=== PATIENT | male | born 1935 | race Caucasian/White ===

== ENCOUNTER 2016-12-22 07:29 | Outpatient (CLI) | payer MEDICARE | END 2016-12-22 07:30 | disposition home or self-care (01) | DX: I10 Essential (primary) hypertension (principal); E78.5 Hyperlipidemia, unspecified ==

== ENCOUNTER 2017-02-23 13:15 | Outpatient (CLI) | payer MEDICARE | END 2017-02-23 13:16 | disposition short-term general hospital (02) | LOC: EMS 13:15 | PROVIDERS: ATTEND Surgery | DX: R55 Syncope and collapse (principal); R00.1 Bradycardia, unspecified | CPT/HCPCS: A0425; A0429 ==

== ENCOUNTER 2017-03-26 14:16 | Outpatient (CLI) | payer MEDICARE ==
[2017-03-26 18:17] LABS: CALCIUM 9.6 mg/dL (8.5-10.3); CREATININE 1.3 mg/dL (0.6-1.2); POTASSIUM 3.8 mmol/L (3.5-5.0)
== END 2017-03-26 14:17 | disposition home or self-care (01) ==
LOC: LAB.F 14:16
PROVIDERS: ATTEND Physician Assistant
DX: I10 Essential (primary) hypertension (principal)
CPT/HCPCS: 36415; 80048

== ENCOUNTER 2017-12-14 09:17 | Outpatient (CLI) | payer MEDICARE ==
[2017-12-14 18:11] LABS: ALBUMIN 4.3 g/dL (3.2-5.5); ALBUMIN/GLOBULIN RATIO 1.3 (1.0-2.2); ALKALINE PHOSPHATASE 103 IU/L (42-121); ALT ALANINE AMINOTRANSFERASE 15 IU/L (10-60); AST ASPARTATE AMINOTRANSFERASE 19 IU/L (10-42); BILIRUBIN,TOTAL 0.9 mg/dL (0.2-1.0); BUN - BLOOD UREA NITROGEN 17 mg/dL (6-20); CALCIUM 9.9 mg/dL (8.5-10.3); CARBON DIOXIDE - CO2 28 mmol/L (21-32); CHLORIDE 102 mmol/L (101-111); CHOL/HDL RATIO 2.8 (<5.0); CHOLESTEROL 176 mg/dL; CREATININE 1.2 mg/dL (0.6-1.2); GFR - MDRD 58 (>89); GLUCOSE 104 mg/dL (70-100); HDL CHOLESTEROL 64 mg/dL; LDL CHOLESTEROL,CALCULATED 97 mg/dL; LDL/HDL RATIO 1.5 (<3.6); SODIUM 140 mmol/L (135-145); TOTAL PROTEIN 7.5 g/dL (6.7-8.2); VLDL CHOLESTEROL 15 mg/dL
== END 2017-12-14 09:18 | disposition home or self-care (01) ==
LOC: LAB.F 09:17
PROVIDERS: ATTEND Physician Assistant
DX: E78.5 Hyperlipidemia, unspecified (principal); I10 Essential (primary) hypertension
CPT/HCPCS: 36415; 80053; 80061; 83721

== ENCOUNTER 2018-01-15 08:11 | Outpatient (CLI) | payer MEDICARE ==
[2018-01-15 11:01] LABS: CALCIUM 9.2 mg/dL (8.5-10.3); CREATININE 1.1 mg/dL (0.6-1.2)
== END 2018-01-15 08:12 | disposition home or self-care (01) ==
LOC: LAB.F 08:11
PROVIDERS: ATTEND Physician Assistant
DX: I10 Essential (primary) hypertension (principal); R73.01 Impaired fasting glucose
CPT/HCPCS: 36415; 80048

== ENCOUNTER 2018-04-09 14:21 | Outpatient (CLI) | payer MEDICARE ==
[2018-04-09 17:41] LABS: ALBUMIN 3.5 g/dL (3.2-5.5); ALBUMIN/GLOBULIN RATIO 1.2 (1.0-2.2); BILIRUBIN,TOTAL 0.7 mg/dL (0.2-1.0); CALCIUM 9.1 mg/dL (8.5-10.3); CREATININE 1.1 mg/dL (0.6-1.2); TOTAL PROTEIN 6.4 g/dL (6.7-8.2)
== END 2018-04-09 14:22 | disposition home or self-care (01) ==
LOC: LAB.F 14:21
PROVIDERS: ATTEND Physician Assistant
DX: I10 Essential (primary) hypertension (principal)
CPT/HCPCS: 36415; 80053

== ENCOUNTER 2018-09-01 07:38 | Outpatient (CLI) | payer MEDICARE ==
[2018-09-01 10:52] LABS: ALBUMIN 3.7 g/dL (3.2-5.5); ALBUMIN/GLOBULIN RATIO 1.2 (1.0-2.2); ALKALINE PHOSPHATASE 106 IU/L (42-121); ALT ALANINE AMINOTRANSFERASE 13 IU/L (10-60); AST ASPARTATE AMINOTRANSFERASE 17 IU/L (10-42); BILIRUBIN,TOTAL 0.8 mg/dL (0.2-1.0); BUN - BLOOD UREA NITROGEN 25 mg/dL (6-20); CALCIUM 9.4 mg/dL (8.5-10.3); CARBON DIOXIDE - CO2 28 mmol/L (21-32); CHLORIDE 106 mmol/L (101-111); CHOL/HDL RATIO 3.4 (<5.0); CHOLESTEROL 171 mg/dL; CREATININE 1.2 mg/dL (0.6-1.2); GFR - MDRD 58 (>89); GLUCOSE 106 mg/dL (70-100); HDL CHOLESTEROL 50 mg/dL; LDL CHOLESTEROL,CALCULATED 95 mg/dL; LDL/HDL RATIO 1.9 (<3.6); SODIUM 139 mmol/L (135-145); TOTAL PROTEIN 6.7 g/dL (6.7-8.2); VLDL CHOLESTEROL 26 mg/dL
== END 2018-09-01 07:39 | disposition home or self-care (01) ==
LOC: LAB.F 07:38
PROVIDERS: ATTEND Internal Medicine
DX: I10 Essential (primary) hypertension (principal)
CPT/HCPCS: 36415; 80053; 80061; 83721

== ENCOUNTER 2018-10-11 08:54 | Outpatient (CLI) | payer MEDICARE ==
--- NOTE | 2018-10-11 15:52 | CONSULTATION NOTE ---
Referring Provider Consult Date: 10/11/18 Chief Complaint - Chief Complaint Chief Complaint: abdominal pain History of Present Illness - History of Present Illness HPI Comment/Other: 83 yo man presented to the ER with acute RLQ pain that started this morning. It has since resolved. Also had a syncopal episode at home. Denies any other abdominal symptoms or surgery. He did have a stroke in 2009. History - Past Medical History Cardiovascular: reports: Hypertension Neuro: reports: CVA MRSA Hx?: No - Past Surgical History HEENT: reports: Tonsil/Adenoidectomy Derm: reports: Other - POLST Patient has POLST: No Meds/Allgy - Home Medications Home Medications: Ambulatory Orders Medication Instructions Recorded Confirmed Clopidogrel Bisulfate [Clopidogrel] 75 mg PO DAILY 10/11/18 Lisinopril 20 mg PO DAILY 10/11/18 Metoprolol Tartrate 50 mg PO BID 10/11/18 Spironolactone 25 mg PO DAILY 10/11/18 - Allergies Allergies/Adverse Reactions: Allergies Allergy/AdvReac Type Severity Reaction Status Date / Time No Known Drug Allergies Allergy Verified 10/11/18 09:38 Review of Systems - Constitutional Constitutional: reports: Fatigue - Cardiovascular Cariovascular: reports: Syncope - Gastrointestinal Gastrointestinal: reports: Abdominal pain Exam - Vital Signs Reviewed Vital Signs: Yes - Physical Exam General Appearance: positive: No acute distress Eyes Bilateral: positive: Normal inspection ENT: positive: ENT inspection nml Respiratory: positive: Chest non-tender Cardiovascular: positive: Regular rate & rhythm Abdomen: positive: Non-tender Back: positive: Nml inspection Skin: positive: Color nml Extremities: positive: Non-tender Neurologic/Psychiatric: positive: Oriented x3 Conclusion/Plan - Diagnosis Diagnosis: Perforated viscous - Plan Plan: On CT, pt appears to have a fluid collection in the RLQ without air with some adjacent inflammatory changes. His sigmoid colon overlies the cecum in that region and he does have diverticuli, so most likely he has diverticulitis vs appendicitis. However, he currently has no pain or tenderness and no WBC elevation. I think it is reasonable to admit the pt on antibiotics and observe overnight for progression. If his clinical picture deteriorates, we will revisit the possibility of surgery. I discussed this with the pt and he agrees.
== END 2018-10-11 08:55 | disposition critical access hospital (66) ==
LOC: EMS 08:54
PROVIDERS: ATTEND Surgery
DX: R55 Syncope and collapse (principal)
CPT/HCPCS: A0425; A0429

== ENCOUNTER 2018-10-11 09:31 | Inpatient (IN) | payer MEDICARE ==
--- NOTE | 2018-10-11 10:18 | ED Physician Documentation ---
History of Present Illness - Stated complaint Stated Complaint: SYNCOPE - Chief complaint Chief Complaint: Abd Pain - Additonal information Additional information: hx from pt 83 male soa and cough for a few days was going to see PMD about that no fever this AM had lower abd pains and felt weak and sweaty then had a syncopal episode no fall or injury - was seated no CP or palp had blood in BM a month ago not recently dark urine no NVD no bad food no travel Review of Systems Constitutional: reports: Sweats Throat: denies: Sore throat Cardiac: denies: Chest pain / pressure, Palpitations Respiratory: reports: Dyspnea, Cough GI: reports: Abdominal Pain. denies: Nausea, Vomiting, Diarrhea, Bloody / black stool (not for a month) : reports: Other (dark color) Neurologic: reports: Syncope. denies: Headache, Head injury Endocrine: denies: Easy bruising / bleeding Immunocompromised: denies: Immunocompromised PD PAST MEDICAL HISTORY - Past Medical History Past Medical History: Yes Cardiovascular: Hypertension Neuro: CVA - Past Surgical History Past Surgical History: Yes HEENT: Tonsil/Adenoidectomy Derm: Other - Present Medications Home Medications: Ambulatory Orders Medication Instructions Recorded Confirmed Clopidogrel Bisulfate [Clopidogrel] 75 mg PO DAILY 10/11/18 Lisinopril 20 mg PO DAILY 10/11/18 Metoprolol Tartrate 50 mg PO BID 10/11/18 Spironolactone 25 mg PO DAILY 10/11/18 - Allergies Allergies/Adverse Reactions: Allergies Allergy/AdvReac Type Severity Reaction Status Date / Time No Known Drug Allergies Allergy Verified 10/11/18 09:38 - Social History Does the pt smoke?: No Smoking Status: Never smoker Does the pt drink ETOH?: Yes ETOH Use: Wine Does the pt have substance abuse?: No - Immunizations Immunizations are current?: Yes - POLST Patient has POLST: No PD ED PE NORMAL - Vitals Vital signs reviewed: Yes - General General: Alert and oriented X 3 - HEENT HEENT: PERRL - Neck Neck: Supple, no meningeal sign - Cardiac Cardiac: RRR - Respiratory Respiratory: No respiratory distress, Clear bilaterally - Abdomen Abdomen: Soft, Other (mild to mod TTP lower abd wirh deep palp but not peritoneal) - Derm Derm: Normal color - Neuro Neuro: Alert and oriented X 3, No motor deficit, Normal speech Eye Opening: Spontaneous Motor: Obeys Commands Verbal: Oriented GCS Score: 15 Results - Vitals Vitals: Vital Signs - 24 hr 10/11/18 10/11/18 09:33 12:09 Temperature 36.3 C L 36.5 C Heart Rate 106 H 91 Respiratory 18 18 Rate Blood Pressure 144/88 H 139/87 H O2 Saturation 95 97 Oxygen O2 Source Room air - EKG (time done) 1032 Rate: Rate (enter#) (93) Rhythm: NSR [place]: Normal Ischemia: Normal ST segments - Labs Labs: Laboratory Tests 10/11/18 10/11/18 10/11/18 10:29 10:29 10:29 WBC 7.4 RBC 4.74 Hgb 14.4 Hct 42.5 MCV 89.6 MCH 30.5 MCHC 34.0 RDW 13.6 Plt Count 147 MPV 8.8 Neut # (Auto) 6.6 Lymph # (Auto) 0.3 L [place] # (Auto) 0.4 Eos # (Auto) 0.0 Baso # (Auto) 0.0 Absolute Nucleated RBC 0.01 Nucleated RBC % 0.1 Sodium 137 Potassium 4.4 Chloride 104 Carbon Dioxide 25 Anion Gap 8.0 BUN 24 H Creatinine 1.4 H Estimated GFR (MDRD) 49 L Glucose 144 H Lactic Acid Calcium 8.8 Total Bilirubin 0.7 AST 14 ALT 12 Alkaline Phosphatase 95 Troponin I < 0.04 Total Protein 6.6 L Albumin 3.5 Globulin 3.1 Albumin/Globulin Ratio 1.1 Lipase 38 Urine Color Urine Clarity Urine pH Ur Specific [place] Urine Protein Urine Glucose (UA) Urine Ketones Urine Occult Blood Urine Nitrite Urine Bilirubin Urine Urobilinogen Ur Leukocyte Esterase Urine RBC Urine WBC Ur Squamous Epith Cells Urine Bacteria Ur Microscopic Review Urine Culture Comments 10/11/18 10/11/18 10:29 11:30 WBC RBC Hgb Hct MCV MCH MCHC RDW Plt Count MPV Neut # (Auto) Lymph # (Auto) [place] # (Auto) Eos # (Auto) Baso # (Auto) Absolute Nucleated RBC Nucleated RBC % Sodium Potassium Chloride Carbon Dioxide Anion Gap BUN Creatinine Estimated GFR (MDRD) Glucose Lactic Acid 1.3 Calcium Total Bilirubin AST ALT Alkaline Phosphatase Troponin I Total Protein Albumin Globulin Albumin/Globulin Ratio Lipase Urine Color DARK YELLOW Urine Clarity CLOUDY Urine pH 5.5 Ur Specific [place] >=1.030 H Urine Protein 30 H Urine Glucose (UA) NEGATIVE Urine Ketones TRACE Urine Occult Blood LARGE H Urine Nitrite NEGATIVE Urine Bilirubin NEGATIVE Urine Urobilinogen 0.2 (NORMAL) Ur Leukocyte Esterase TRACE H Urine RBC TNTC H Urine WBC 6-10 H Ur Squamous Epith Cells FEW Squamous Urine Bacteria Few Ur Microscopic Review INDICATED Urine Culture Comments INDICATED - Rads (name of study) CTAP Radiology: See rad report (diverticulosis, rednundant sigmoid, fat stranding and inflammation RLQ could be perf divertic or appy with possible abscess no free air) CXR Radiology: See rad report (L base atelectasis) PD MEDICAL DECISION MAKING - ED course ED course: SOA abd pain and syncope EKG and trop fine labs notable for new renal insuff and UTI CXR = probably atelectasis CTAP shows RLQ inflammatory changes 2.2 X 3.5 cm per radia c/w contained perf of appendix or diverticultis, also L renal mass vs cyst radia rec sono (pt advised) gave zosyn req [employer] call surgeon for consult and hospitalist for admit approx 130 PM due to busy ER with many transfers to be arranged, consultants not paged until a bit later spoke to surgery Dr Robles at 1520 and he will come see pt spoke to hospitalist Dr Delgadillo at 1540 and she will admit to inpt Departure - Departure Disposition: 66 [facility] DC/Xfer Clinical Impression: Abdominal infection Syncope Qualifiers: Syncope type: unspecified Qualified Code(s): R55 - Syncope and collapse Dyspnea Qualifiers: Dyspnea type: unspecified Qualified Code(s): R06.00 - Dyspnea, unspecified UTI (urinary tract infection) Qualifiers: Urinary tract infection type: site unspecified Hematuria presence: with hematuria Qualified Code(s): N39.0 - Urinary tract infection, site not specified Condition: Fair
[2018-10-11 10:38] LABS: BASOPHILS % (AUTO) 0.3 %; EOSINOPHILS % (AUTO) 0.5 %; HGB - HEMOGLOBIN 14.4 g/dL (14.0-18.0); LYMPHOCYTES # (AUTO) 0.3 10^3/uL (1.5-3.5); LYMPHOCYTES % (AUTO) 3.7 %; MEAN CORPUSCULAR HEMOGLOBIN 30.5 pg (27.0-31.0); MEAN CORPUSCULAR VOLUME 89.6 fL (80.0-94.0); MEAN PLATELET VOLUME 8.8 fL (7.4-11.4); MONOCYTES # (AUTO) 0.4 10^3/uL (0.0-1.0); MONOCYTES % (AUTO) 5.9 %; NEUTROPHILS # (AUTO) 6.6 10^3/uL (1.5-6.6); NEUTROPHILS % (AUTO) 89.6 %; PLT - PLATELET COUNT 147 10^3/uL (130-450); RED BLOOD COUNT 4.74 10^6/uL (4.70-6.10); RED CELL DISTRIBUTION WIDTH 13.6 % (12.0-15.0); WHITE BLOOD COUNT 7.4 x10^3/uL (4.8-10.8)
[2018-10-11 10:51] LABS: ALBUMIN 3.5 g/dL (3.2-5.5); ALBUMIN/GLOBULIN RATIO 1.1 (1.0-2.2); BILIRUBIN,TOTAL 0.7 mg/dL (0.2-1.0); CALCIUM 8.8 mg/dL (8.5-10.3); CREATININE 1.4 mg/dL (0.6-1.2); TOTAL PROTEIN 6.6 g/dL (6.7-8.2)
--- NOTE | 2018-10-11 11:38 | XRAY Report ---
Reason: syncope cough soa Procedure Date: 10/11/2018 Accession Number: [id number] / [id number] Procedure: XR - Chest 2 View X-Ray CPT Code: 16925 FULL RESULT: EXAM: CHEST RADIOGRAPHY EXAM DATE: 10/11/2018 11:03 AM. CLINICAL HISTORY: Syncope, cough, shortness of air. COMPARISON: None. TECHNIQUE: 2 views. FINDINGS: Lungs/Pleura: There are opacities at the left lung base, appearance favors subsegmental atelectasis, airspace disease not excluded. No pleural effusion or pneumothorax. Mediastinum: Heart and mediastinal contours are unremarkable. Other: None. IMPRESSION: There are linear opacities at left lung base. RADIA
--- NOTE | 2018-10-11 11:42 | CT Report ---
Reason: abd pain syncope Procedure Date: 10/11/2018 Accession Number: [id number] / [id number] Procedure: CT - Abdomen/Pelvis W/O CPT Code: FULL RESULT: EXAM: CT ABDOMEN AND PELVIS (CT KUB) EXAM DATE: 10/11/2018 10:46 AM. CLINICAL HISTORY: Abdominal pain, syncope. COMPARISONS: None. TECHNIQUE: Routine axial helical CT imaging was performed through the abdomen and pelvis without IV contrast. Reconstructions: Coronal and sagittal. In accordance with CT protocol optimization, one or more of the following dose reduction techniques were utilized for this exam: automated exposure control, adjustment of mA and/or KV based on patient size, or use of iterative reconstructive technique. FINDINGS: Lung Bases: Bilateral dependent changes. Right Kidney/Ureter: Simple cysts and hypodensities which are too small to characterize. No stones, hydronephrosis, or hydroureter. No perinephric fat stranding. Left Kidney/Ureter: There is the suggestion of a solid 3.1 x 2.2 x 2.7 cm upper pole left renal mass, not characterized on noncontrast exam. There are also simple renal cysts. No obstruction or calculi. Other Solid Organs: Liver contains subcentimeter hypodensities which are not characterized as they are too small to be evaluated for cyst on noncontrast examination. Gallbladder/Bile Ducts: Unremarkable. Peritoneal Cavity: There is a 2.2 x 3.5 cm low-density fluid collection, greater than simple fluid at 17 HU in the right lower quadrant near the inguinal canal that is intimately associated with the sigmoid colon and the presumed appendix which is not separately visualized. There is subtle fat stranding in the surrounding area. There is diverticulosis of the sigmoid colon. No bowel obstruction. No definite free intraperitoneal gas. No significant free fluid. Pelvic Organs: Prostatic hypertrophy with calcifications. Vasculature: Unremarkable. Other: None. IMPRESSION: Limited characterization of right lower quadrant inflammatory changes given absence of contrast. In the setting of nearby diverticulosis and nonvisualization of the appendix contained perforation of diverticulitis versus appendicitis likely with contained perforation is difficult to differentiate. Suspect left renal mass, recommend ultrasound on routine outpatient basis to determine whether this could represent a hyperdense cyst. RADIA The above findings of suspected diverticulitis versus appendicitis were discussed with Renee Licona by Dr. Tk Saravia at 11:40 hrs on 10/11/18.
[2018-10-11 11:47] LABS: GLUCOSE, URINE (UA) NEGATIVE (NEGATIVE); KETONES,URINE (UA) TRACE mg/dL (NEGATIVE); LEUKOCYTE ESTERASE, URINE TRACE (NEGATIVE); NITRITE,URINE NEGATIVE (NEGATIVE); OCCULT BLOOD,URINE LARGE (NEGATIVE); PH,URINE 5.5 PH (5.0-7.5); PROTEIN,URINE 30 mg/dL (NEGATIVE); UROBILINOGEN,URINE 0.2 (NORMAL) E.U./dL (NORMAL)
[2018-10-11 11:54] LABS: BILIRUBIN,URINE NEGATIVE (NEGATIVE); CLARITY,URINE CLOUDY (CLEAR); ICTOTEST,URINE NEGATIVE
[2018-10-11 12:10] LABS: BACTERIA,URINE Few /HPF (None Seen); RBC,URINE TNTC /HPF (0-5); SQUAMOUS EPITHELIAL CELL,UR FEW Squamous (<= Few)
[2018-10-11] MEDS ORDERED: PIPERACILLIN/TAZOBACTAM 3.375 GM in SODIUM CHLORIDE 0.9% MINIBAG 100 ML IV STA (13:29)
[2018-10-11] MEDS ORDERED: ACETAMINOPHEN 1,000 MG/100 ML 100 ML IV STA (15:28)
[2018-10-11] MEDS ORDERED: ONDANSETRON 4 MG/2 ML VIAL IVP PRN (15:57)
[2018-10-11] MEDS ORDERED: MORPHINE 2 MG/ML CARPUJECT IVP PRN (15:57)
[2018-10-11] MEDS ORDERED: ONDANSETRON ODT 4 MG TABLET TL PRN (15:57)
[2018-10-11] MEDS ORDERED: SODIUM CHLORIDE FLUSH 0.9% 10 ML SYRINGE IVP PRN (15:57)
--- NOTE | 2018-10-11 16:21 | HISTORY & PHYSICAL EXAMINATION ---
Chief Complaint - Chief Complaint Chief Complaint: RLQ abd pain, sudden, w syncop History of Present Illness - Admitted From Admitted From:: Home/ER - History Obtained From Records Reviewed: [facility] and [facility] History obtained from: Dr. Ackerman and patient Exam Limitations: None - History of Present Illness HPI Comment/Other: He has been having coughing, chest congestion and sinus congestion for the last week. Was due to see his primary care provider tomorrow. This morning, was sitting on the toilet, he had an sudden onset of right lower quadrant pain. Had syncope. He gives a history of having some bloody stool a month ago. But no intervening history of abdominal pain, fevers, chills, sweats, or change in [place] wel habits. In the emergency room he was evaluated by Dr. Ackerman. He was afebrile, mildly tachycardic at 106, blood pressure 144/88 respirations 18. He had a soft abdominal exam, with mild to moderate tenderness of the lower abdomen with deep palpation but no peritoneal findings. A white cell count was normal. Electrolytes were normal. He does have a mild elevation of BUN and creatinine of 24 1.4 where his baseline is 25 and 1.1. Lactic acid was 1.3 because of the tachycardia and a troponin was negative at 0.04. CT of the abdomen shows a collection of fluid in the right lower quadrant. He has already been seen by general surgery who feels that it is either appendicitis versus diverticulitis that is walled off. He would like the patient admitted to our service and treated with single agent Zosyn. He will do serial abdominal exams and decide tomorrow if the patient is going to go for surgery or not. At this time the patient does not need to go to surgery. The patient denies chest pain, palpitations. He has a history of a stroke but no history of A. fib, valvular heart disease. He has not had any angina. He does not have any lung disease. History - Past Medical History Cardiovascular: reports: Congestive heart failure (November 2009. Echocardiogram showed an ejection fraction of 40-45%. Septal hypokinesis. Grade 1 diastolic dysfunction. Mild aortic regurgitation, trace tricuspid regurgitation without pulmonary hypertension.), Hypertension Respiratory: reports: None Neuro: reports: CVA (November 14, 2009. Presented as speech difficulty and problems with walking. CT of head was negative. Echocardiogram showed new congestive heart failure. Old lacunar infarcts were noted. Carotid Dopplers without hemodynamically significant carotid artery plaque or stenosis. EKG was sinus tachycardia. Residual speech deficit treated by speech therapy. Started on Plavix and aspirin.), Fainting (Syncope February 2017. Was at the [employer] when he started feeling "warm and lightheaded". Went outside to the garden and the cool air felt great. Sat down on the curb in the garden. Then he woke up lying flat on the ground. Bystanders reported that he fell backward and was unconscious for 45 seconds. EKG with sinus rhythm first-degree AV block. Seen at [facility]. CT of head showed small old right basilar ganglia infarcts and right centrum semi-ovale. [place] to be vasovagal. Since exam negative, labs negative, sent home.), Other (Vertigo and tinnitus starting October 2013. The room will spin around him. Tends to be more when he turns his head to the right than left.) Endocrine/Autoimmune: reports: None GI: reports: Diverticulitis (Currently with a history of diverticulosis in the past.) : reports: Other (Hematuria on urinalysis 2016.Bladder biopsy -2002.) HEENT: reports: Other (Benign left parotid tumor removed in 2003) Psych: reports: None Musculoskeletal: reports: None Derm: reports: None MRSA Hx?: No Other Past Medical History: Mild anemia 2009. 3 sets of Hemoccult cards negative.Ferritin normal at 42.9. - Past Surgical History HEENT: reports: Tonsil/Adenoidectomy, Other (left parotid tumor removal) - Family & Social History Family History Comment/Other: Mother of a stroke. Dad of cancer and also had COPD. Sister of unknown causes. She went to bed one night and never woke up. 1 son is in good health, and lives in [place] but one son has chemical dependency, on methadone and lives in [place]. Living arrangement: At home Living Situation: Alone Social History Notes: He use to live with his in [place]. She has developed progressive dementia and he was her caregiver. She 3 years ago. His younger son used to live with them. He and his significant other helped Mr. Chao take care of his . They cooked, kept the house clean. They lived together for about 5 years. When his , he really wanted his son to leave the house. The son still has problems with substance abuse. So Mr. Chao bought him a small house in [place] and his son lives in [place] with a significant other. He finds it easier to have the distance. His second son lives in [place] with his partner and they adoped 2 kids. He is a non-smoker. He started smoking at the age of 16. Smoked about 1 pack/day and stopped in 1989. He likes 2 glasses of wine anywhere from 3-4 times a week. A Martini is daily. No history of recreational substance abuse. - Substance History Use: Uses substance without health or social issues: Alcohol Abuse: Recurrent use of substance despite neg consequences: NONE Dependence: Experiences withdrawal or developed tolerances: NONE - POLST Patient has POLST: No POLST Status: DNR (He has advanced directive at home.) Meds/Allgy - Home Medications Home Medications: Ambulatory Orders Medication Instructions Recorded Confirmed Clopidogrel Bisulfate [Clopidogrel] 75 mg PO DAILY 10/11/18 10/11/18 Lisinopril 20 mg PO DAILY 10/11/18 10/11/18 Metoprolol Tartrate 50 mg PO BID 10/11/18 10/11/18 Spironolactone 25 mg PO DAILY 10/11/18 10/11/18 - Allergies Allergies/Adverse Reactions: Allergies Allergy/AdvReac Type Severity Reaction Status Date / Time No Known Drug Allergies Allergy Verified 10/11/18 09:38 Review of Systems - Constitutional Constitutional: denies: Fatigue, Fever, Chills, Malaise, Weakness, Poor appetite, Diaphoresis - Eyes Eyes: reports: Irritation, Corrective lenses, Other (He does have cataracts that he is waiting on to get operated on). denies: Pain, Amaurosis, Blurred vision, Field loss - Ears, Nose & Throat Ears, Nose & Throat: reports: Hearing loss, Tinnitus, Vertigo. denies: Ear pain, Hearing aids, Nasal pain, Nasal discharge - Cardiovascular Cariovascular: reports: Exertional dyspnea (He had dyspnea on exertion when he went to go visit his son in September. Noticed it because he would climb a flight of stairs to get upstairs and was noticeably short of breath. Seen by his primary care provider October 01. Current ongoing thought is that he may be bradycardic from his beta-sincere and that was cut to 25 mg a day. He is to be seen in 10 days for follow-up. There is no note in the office chart that that they are aware of the echocardiogram from 2009 showing a reduction in ejection fraction.), Decr. exercise tolerance. denies: Irregular heart rate, Palpitations, Chest pain, Edema - Respiratory Respiratory: denies: Cough, Sputum production, Wheezing, Snoring - Gastrointestinal Gastrointestinal: reports: Abdominal pain (Right lower quadrant this morning only.), Rectal bleeding, Bloody stools, Other (Twice now he has had severe abdominal cramping with an urge to defecate, and he filled the bowl with blood. This is only happened twice. The last time was 2 months ago.). denies: Abdominal distention, Diarrhea, Change in bowel habits, Black stools, Nausea, Vomiting - Genitourinary Genitourinary: reports: Frequency, Urgency, Nocturia. denies: Dysuria, Incontinence, Flank pain - Musculoskeletal Musculoskeletal: reports: Stiffness (Especially in his knees and hips when he gets up in the morning). denies: Muscle pain, Back pain, Muscle aches, Muscle weakness, Gout, Joint pain - Neurological Neurological: reports: Memory problems (Occasionally forgets a word.), Pre- existing deficit, Incoordination (balance off for years now). denies: General weakness, Focal weakness, Headache, Dizziness - Psychiatric Psychiatric: reports: Other (He is getting lonely or lonely or. As he says that he burst into tears.) - Endocrine Endocrine: denies: Polyuria, Polydypsia, Polyphagia - Hematologic/Lymphatic Hematologic/Lymphatic: denies: Anemia, Bruising, Petechiae, Lymphadenopathy, Bleeding tendencies Prior Level of Functionality: He lives in his own apartment. He is a terrible business services sales representative but he still does his own laundry and tries to keep up with the house. He rarely cooks. Likes to go to [employer] in [place] and eats there. Drinks his Martini there to socialize. Still drives a car, pays his own bills. He sold his house a year ago to set aside money for when he needs to have somebody take care of him. Exam - Vital Signs Reviewed Vital Signs: Yes Vital Signs: Vital Signs x48h Temp Pulse Resp BP Pulse Ox 10/11/18 12:09 36.5 C 91 18 139/87 H 97 10/11/18 09:33 36.3 C L 106 H 18 144/88 H 95 - Physical Exam General Appearance: positive: No acute distress, Alert, Other (When we start talking about his lifestyle, and I asked if he is lonely, he spontaneously burst into tears and says that yes, life is a little bit lonely these days. He knows he should go visit his son in [place], but has not made an effort to. And his son is busy with his 2 kids and has not come to the [place] much.) Eyes Bilateral: positive: PERRL, EOMI ENT: positive: Other (The right eye left facial asymmetry because of probable stroke residual. His left eye does not spontaneously close to blink as his right eye does. It seems to be wide open and slightly protuberant. The musculature of his left face is also much more atrophied than his right face. But speech appears normal. Swallowing appears normal.) Neck: negative: No JVD, Stiff neck, Carotid bruit Respiratory: positive: Chest non-tender. negative: Wheezes, Rales, Rhonchi Cardiovascular: positive: Regular rate & rhythm, Systolic murmur. negative: Gallop/S4, Friction rub Peripheral Pulses: positive: 1+ Abdomen: positive: Nml bowel sounds, Tenderness (Mild to palpation. Right lower quadrant.). negative: No organomegaly, No distention, Guarding, Rebound Skin: positive: Warm, Dry Extremities: positive: Full ROM, No pedal edema Neurologic/Psychiatric: positive: Oriented x3, Other (Tearful.). negative: CN's nml (2-12) (Slight left facial droop. Slight tongue deviation. 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 Not associated with fever, white cells, Myalgia, or change in bowel habits. He has a previous history of diverticulosis. Current exam is without peritoneal findings. He has been seen by general surgery. CAT scan shows him to have either diverticulitis or appendicitis. General surgery feels patient can do well with just single agent Zosyn, no surgery at this time Plan: Admit inpatient status per surgery request Continue Zosyn Review blood cultures when they become available Serial abdominal exams Daily CBC (2) Syncope Conclusion/Plan: This is a gentleman who is already had vasovagal syncope in 2017. Seen at [facility]. The syncope is in association with terrible abdominal pain. He has no history of arrhythmias, already has a history of a stroke but this is not a posterior inferior cerebellar event, and I suspect he has had vasovagal syncope again today. He also had his beta-sincere reduced from 50-25 mg twice a day in the last week. Current medication reconciliation is to list him as 50 mg twice daily. Plan: Placed on telemetry for the next 24 hours Get another set of troponins Get current reconciliation to make sure on 25 twice daily Resume metoprolol 25 mg twice daily Qualifiers: Syncope type: vasovagal syncope Qualified Code(s): R55 - Syncope and collapse (3) Abnormal echocardiogram findings without diagnosis Conclusion/Plan: This is found on reviewing his records from his stroke in 2009. But he has no diagnosis of congestive heart failure and his recent dyspnea on exertion is attributed to beta-sincere side effect. Plan: BNP in the morning Repeat echocardiogram (4) Hyperglycemia Conclusion/Plan: No previous history of diabetes. He has had isolated hyperglycemia off and on the past but never severe to be diagnosed. Plan: A1c in the morning (5) Hematuria Conclusion/Plan: Previous bladder biopsy negative. Hematuria noted on ER visit to [facility] in February 2017. Current CT of the abdomen shows a left renal mass. Ultrasound to be done in the outpatient setting. Qualifiers: Hematuria type: unspecified type Qualified Code(s): R31.9 - Hematuria, unspecified (6) CKD (chronic kidney disease) stage 3, GFR 30-59 ml/min Conclusion/Plan: in reviewing his medical records, this is stable. will give IVF since he is NPO. check daily avoid nephrotoxic meds. - Lab Results Lab results reviewed: Yes Fish Bones: 10/11/18 10:29 10/11/18 10:29 - Diagnostic Imaging Results Diagnostic Imaging Results: positive: Final report reviewed Diagnostic Imaging Results Comments: CHEST RADIOGRAPHY EXAM DATE: 10/11/2018 11:03 AM. CLINICAL HISTORY: Syncope, cough, shortness of air. COMPARISON: None. TECHNIQUE: 2 views. FINDINGS: Lungs/Pleura: There are opacities at the left lung base, appearance favors subsegmental atelectasis, airspace disease not excluded. No pleural effusion or pneumothorax. Mediastinum: Heart and mediastinal contours are unremarkable. Other: None. IMPRESSION: There are linear opacities at left lung base. CT ABDOMEN AND PELVIS (CT KUB) EXAM DATE: 10/11/2018 10:46 AM. CLINICAL HISTORY: Abdominal pain, syncope. COMPARISONS: None. TECHNIQUE: Routine axial helical CT imaging was performed through the abdomen and pelvis without IV contrast. Reconstructions: Coronal and sagittal. In accordance with CT protocol optimization, one or more of the following dose reduction techniques were utilized for this exam: automated exposure control, adjustment of mA and/or KV based on patient size, or use of iterative reconstructive technique. FINDINGS: Lung Bases: Bilateral dependent changes. Right Kidney/Ureter: Simple cysts and hypodensities which are too small to characterize. No stones, hydronephrosis, or hydroureter. No perinephric fat stranding. Left Kidney/Ureter: There is the suggestion of a solid 3.1 x 2.2 x 2.7 cm upper pole left renal mass, not characterized on noncontrast exam. There are also simple renal cysts. No obstruction or calculi. Other Solid Organs: Liver contains subcentimeter hypodensities which are not characterized as they are too small to be evaluated for cyst on noncontrast examination. Gallbladder/Bile Ducts: Unremarkable. Peritoneal Cavity: There is a 2.2 x 3.5 cm low-density fluid collection, greater than simple fluid at 17 HU in the right lower quadrant near the inguinal canal that is intimately associated with the sigmoid colon and the presumed appendix which is not separately visualized. There is subtle fat stranding in the surrounding area. There is diverticulosis of the sigmoid colon. No bowel obstruction. No definite free intraperitoneal gas. No significant free fluid. Pelvic Organs: Prostatic hypertrophy with calcifications. Vasculature: Unremarkable. Other: None. IMPRESSION: Limited characterization of right lower quadrant inflammatory changes given absence of contrast. In the setting of nearby diverticulosis and nonvisualization of the appendix contained perforation of diverticulitis versus appendicitis likely with contained perforation is difficult to differentiate. Suspect left renal mass, recommend ultrasound on routine outpatient basis to determine whether this could represent a hyperdense cyst. - EKG Results EKG Interpreted Independently: No EKG Comparison: Unchanged from prior EKG EKG Findings: NSR and no change from 2017 EKG. Core Measures - Anticipated LOS I expect patient to be DC'd or transferred within 96 hours.: Yes - DVT/VTE - Prophylaxis VTE/DVT Device ordered at admit?: Yes
[2018-10-11] MEDS: SODIUM CHLORIDE 0.9% 1,000 ML IV SCH (17:56)
[2018-10-11] MEDS: PIPERACILLIN/TAZOBACTAM 3.375 GM in SODIUM CHLORIDE 0.9% MINIBAG 100 ML IV SCH (17:57)
[2018-10-11] MEDS: SODIUM CHLORIDE FLUSH 0.9% 10 ML SYRINGE IVP SCH ×2 (17:58→23:53)
[2018-10-11] MEDS ORDERED: ACETAMINOPHEN 1,000 MG/100 ML 100 ML IV PRN (19:53)
[2018-10-11] MEDS: METOPROLOL TARTRATE 25 MG TABLET PO SCH (21:40)
[2018-10-11] MEDS ORDERED: HYDROcod/ACETAM 5/325 MG TABLET PO PRN (22:32)
[2018-10-12] MEDS: PIPERACILLIN/TAZOBACTAM 3.375 GM in SODIUM CHLORIDE 0.9% MINIBAG 100 ML IV SCH ×2 (00:34→09:29)
[2018-10-12] MEDS: SODIUM CHLORIDE 0.9% 1,000 ML IV SCH ×2 (03:31→13:06)
[2018-10-12 05:32] LABS: BASOPHILS % (AUTO) 0.5 %; EOSINOPHILS # (AUTO) 0.1 10^3/uL (0.0-0.7); EOSINOPHILS % (AUTO) 1.6 %; HGB - HEMOGLOBIN 12.5 g/dL (14.0-18.0); LYMPHOCYTES # (AUTO) 0.6 10^3/uL (1.5-3.5); MEAN CORPUSCULAR HEMOGLOBIN 30.3 pg (27.0-31.0); MEAN CORPUSCULAR HGB CONC 32.8 g/dL (32.0-36.0); MEAN CORPUSCULAR VOLUME 92.3 fL (80.0-94.0); MEAN PLATELET VOLUME 8.8 fL (7.4-11.4); MONOCYTES # (AUTO) 0.6 10^3/uL (0.0-1.0); MONOCYTES % (AUTO) 9.4 %; NEUTROPHILS # (AUTO) 4.6 10^3/uL (1.5-6.6); NEUTROPHILS % (AUTO) 78.5 %; PLT - PLATELET COUNT 133 10^3/uL (130-450); RED BLOOD COUNT 4.14 10^6/uL (4.70-6.10); RED CELL DISTRIBUTION WIDTH 13.3 % (12.0-15.0); WHITE BLOOD COUNT 5.9 x10^3/uL (4.8-10.8)
[2018-10-12 05:35] LABS: CALCIUM 8.6 mg/dL (8.5-10.3); CREATININE 1.9 mg/dL (0.6-1.2)
--- NOTE | 2018-10-12 07:42 | PROVIDER PROGRESS NOTE ---
Subjective - Prog Note Date Prog Note Date: 10/12/18 Prog Note Time: 07:40 - Subjective Subjective: He had some terrible left lower quadrant pain this morning. Lasted briefly. Went away on its own. No particular change in diet or status. Current Medications - Current Medications Current Medications: Active Medications Hydrocodone Bitart/Acetaminophen ([place] 5/325) 1 tab PO Q4HR PRN PRN Reason: PAIN Last Admin: 10/12/18 00:33 Dose: 1 tab Enoxaparin Sodium (Lovenox) 40 mg SUBQ DAILY [facility] Sodium Chloride (Normal Saline 0.9%) 1,000 mls @ 100 mls/hr IV .Q10H [facility] Last Admin: 10/12/18 03:31 Dose: 100 mls/hr Piperacillin Sod/Tazobactam (Sod 3.375 gm/ Sodium Chloride) 100 mls @ 25 mls/hr IV Q8H [facility] Last Infusion: 10/12/18 04:40 Dose: Infused Acetaminophen (Ofirmev) 100 mls @ 400 mls/hr IV Q6HR PRN PRN Reason: PAIN Last Infusion: 10/11/18 20:55 Dose: Infused Metoprolol Tartrate (Lopressor) 25 mg PO BID [facility] Last Admin: 10/11/18 21:40 Dose: 25 mg Morphine Sulfate (Morphine (Carpuject)) 2 mg IVP Q2HR PRN PRN Reason: Pain 8 to 10 Ondansetron HCl (Zofran Inj) 4 mg IVP Q6HR PRN PRN Reason: Nausea / Vomiting Last Admin: 10/11/18 20:04 Dose: 4 mg Ondansetron HCl (Zofran Odt) 4 mg TL Q6HR PRN PRN Reason: Nausea / Vomiting Polyethylene Glycol (Miralax) 17 gm PO DAILY [facility] Sodium Chloride (Normal Saline Flush 0.9%) 10 ml IVP PRN PRN PRN Reason: NEEDED PER PROVIDER ORDERS Sodium Chloride (Normal Saline Flush 0.9%) 10 ml IVP 0100,0900,1700 [facility] Last Admin: 10/11/18 23:53 Dose: Not Given Clopidogrel Bisulfate [Clopidogrel] 75 mg PO DAILY 10/11/18 Lisinopril 20 mg PO DAILY 10/11/18 Metoprolol Tartrate 50 mg PO BID 10/11/18 Spironolactone 25 mg PO DAILY 10/11/18 Objective - Vital Signs/Intake & Output Reviewed Vital Signs: Yes Vital Signs: Vital Signs x48h Temp Pulse Resp BP Pulse Ox 10/12/18 00:31 36.5 C 80 17 136/79 H 93 Intake & Output: Intake & Output 10/09/18 10/10/18 10/11/18 10/12/18 23:59 23:59 23:59 23:59 Intake Total 400 1058.333 Output Total 100 Balance 300 1058.333 - Objective General Appearance: positive: No acute distress, Alert Eyes Bilateral: positive: PERRL, EOMI ENT: positive: Other (Some facial asymmetry from previous stroke) Neck: positive: No JVD. negative: Stiff neck Respiratory: positive: Chest non-tender. negative: Wheezes, Rales, Rhonchi Cardiovascular: positive: Regular rate & rhythm, Systolic murmur. negative: Gallop/S4, Friction rub Abdomen: positive: Non-tender, No organomegaly, Nml bowel sounds, No distention Skin: positive: No rash, Warm Extremities: positive: Full ROM, No pedal edema Neurologic/Psychiatric: positive: Oriented x3, CN's nml (2-12), Motor nml - Lab Results Fish Bones: 10/12/18 04:45 10/12/18 04:45 Other Labs: Lab Results x24hrs 10/12/18 10/12/18 10/11/18 Range/Units 04:45 04:45 11:30 WBC 5.9 (4.8-10.8) x10^3/uL RBC 4.14 L (4.70-6.10) 10^6/uL Hgb 12.5 L (14.0-18.0) g/dL Hct 38.2 L (42.0-52.0) % MCV 92.3 (80.0-94.0) fL MCH 30.3 (27.0-31.0) pg MCHC 32.8 (32.0-36.0) g/dL RDW 13.3 (12.0-15.0) % Plt Count 133 (130-450) 10^3/uL MPV 8.8 (7.4-11.4) fL Neut # (Auto) 4.6 (1.5-6.6) 10^3/uL Lymph # (Auto) 0.6 L (1.5-3.5) 10^3/uL [place] # (Auto) 0.6 (0.0-1.0) 10^3/uL Eos # (Auto) 0.1 (0.0-0.7) 10^3/uL Baso # (Auto) 0.0 (0.0-0.1) 10^3/uL Absolute Nucleated RBC 0.01 x10^3/uL Nucleated RBC % 0.1 /100WBC Sodium 140 (135-145) mmol/L Potassium 4.4 (3.5-5.0) mmol/L Chloride 107 (101-111) mmol/L Carbon Dioxide 22 (21-32) mmol/L Anion Gap 11.0 (6-13) BUN 23 H (6-20) mg/dL Creatinine 1.9 H (0.6-1.2) mg/dL Estimated GFR (MDRD) 34 L (>89) Glucose 112 H (70-100) mg/dL Lactic Acid (0.5-2.2) mmol/L Calcium 8.6 (8.5-10.3) mg/dL Total Bilirubin (0.2-1.0) mg/dL AST (10-42) IU/L ALT (10-60) IU/L Alkaline Phosphatase (42-121) IU/L Troponin I (<0.49) ng/mL Total Protein (6.7-8.2) g/dL Albumin (3.2-5.5) g/dL Globulin (2.1-4.2) g/dL Albumin/Globulin Ratio (1.0-2.2) Lipase (22-51) U/L Urine Color DARK YELLOW Urine Clarity CLOUDY (CLEAR) Urine pH 5.5 (5.0-7.5) PH Ur Specific [place] >=1.030 H (1.002-1.030) Urine Protein 30 H (NEGATIVE) mg/dL Urine Glucose (UA) NEGATIVE (NEGATIVE) mg/dL Urine Ketones TRACE (NEGATIVE) mg/dL Urine Occult Blood LARGE H (NEGATIVE) Urine Nitrite NEGATIVE (NEGATIVE) Urine Bilirubin NEGATIVE (NEGATIVE) Urine Urobilinogen 0.2 (NORMAL) (NORMAL) E.U./dL Ur Leukocyte Esterase TRACE H (NEGATIVE) Urine RBC TNTC H (0-5) /HPF Urine WBC 6-10 H (0-3) /HPF Ur Squamous Epith Cells FEW Squamous (<= Few) Urine Bacteria Few (None Seen) /HPF Ur Microscopic Review INDICATED Urine Culture Comments INDICATED 10/11/18 10/11/18 10/11/18 Range/Units 10:29 10:29 10:29 WBC (4.8-10.8) x10^3/uL RBC (4.70-6.10) 10^6/uL Hgb (14.0-18.0) g/dL Hct (42.0-52.0) % MCV (80.0-94.0) fL MCH (27.0-31.0) pg MCHC (32.0-36.0) g/dL RDW (12.0-15.0) % Plt Count (130-450) 10^3/uL MPV (7.4-11.4) fL Neut # (Auto) (1.5-6.6) 10^3/uL Lymph # (Auto) (1.5-3.5) 10^3/uL [place] # (Auto) (0.0-1.0) 10^3/uL Eos # (Auto) (0.0-0.7) 10^3/uL Baso # (Auto) (0.0-0.1) 10^3/uL Absolute Nucleated RBC x10^3/uL Nucleated RBC % /100WBC Sodium 137 (135-145) mmol/L Potassium 4.4 (3.5-5.0) mmol/L Chloride 104 (101-111) mmol/L Carbon Dioxide 25 (21-32) mmol/L Anion Gap 8.0 (6-13) BUN 24 H (6-20) mg/dL Creatinine 1.4 H (0.6-1.2) mg/dL Estimated GFR (MDRD) 49 L (>89) Glucose 144 H (70-100) mg/dL Lactic Acid 1.3 (0.5-2.2) mmol/L Calcium 8.8 (8.5-10.3) mg/dL Total Bilirubin 0.7 (0.2-1.0) mg/dL AST 14 (10-42) IU/L ALT 12 (10-60) IU/L Alkaline Phosphatase 95 (42-121) IU/L Troponin I < 0.04 (<0.49) ng/mL Total Protein 6.6 L (6.7-8.2) g/dL Albumin 3.5 (3.2-5.5) g/dL Globulin 3.1 (2.1-4.2) g/dL Albumin/Globulin Ratio 1.1 (1.0-2.2) Lipase 38 (22-51) U/L Urine Color Urine Clarity (CLEAR) Urine pH (5.0-7.5) PH Ur Specific [place] (1.002-1.030) Urine Protein (NEGATIVE) mg/dL Urine Glucose (UA) (NEGATIVE) mg/dL Urine Ketones (NEGATIVE) mg/dL Urine Occult Blood (NEGATIVE) Urine Nitrite (NEGATIVE) Urine Bilirubin (NEGATIVE) Urine Urobilinogen (NORMAL) E.U./dL Ur Leukocyte Esterase (NEGATIVE) Urine RBC (0-5) /HPF Urine WBC (0-3) /HPF Ur Squamous Epith Cells (<= Few) Urine Bacteria (None Seen) /HPF Ur Microscopic Review Urine Culture Comments 10/11/18 Range/Units 10:29 WBC 7.4 (4.8-10.8) x10^3/uL RBC 4.74 (4.70-6.10) 10^6/uL Hgb 14.4 (14.0-18.0) g/dL Hct 42.5 (42.0-52.0) % MCV 89.6 (80.0-94.0) fL MCH 30.5 (27.0-31.0) pg MCHC 34.0 (32.0-36.0) g/dL RDW 13.6 (12.0-15.0) % Plt Count 147 (130-450) 10^3/uL MPV 8.8 (7.4-11.4) fL Neut # (Auto) 6.6 (1.5-6.6) 10^3/uL Lymph # (Auto) 0.3 L (1.5-3.5) 10^3/uL [place] # (Auto) 0.4 (0.0-1.0) 10^3/uL Eos # (Auto) 0.0 (0.0-0.7) 10^3/uL Baso # (Auto) 0.0 (0.0-0.1) 10^3/uL Absolute Nucleated RBC 0.01 x10^3/uL Nucleated RBC % 0.1 /100WBC Sodium (135-145) mmol/L Potassium (3.5-5.0) mmol/L Chloride (101-111) mmol/L Carbon Dioxide (21-32) mmol/L Anion Gap (6-13) BUN (6-20) mg/dL Creatinine (0.6-1.2) mg/dL Estimated GFR (MDRD) (>89) Glucose (70-100) mg/dL Lactic Acid (0.5-2.2) mmol/L Calcium (8.5-10.3) mg/dL Total Bilirubin (0.2-1.0) mg/dL AST (10-42) IU/L ALT (10-60) IU/L Alkaline Phosphatase (42-121) IU/L Troponin I (<0.49) ng/mL Total Protein (6.7-8.2) g/dL Albumin (3.2-5.5) g/dL Globulin (2.1-4.2) g/dL Albumin/Globulin Ratio (1.0-2.2) Lipase (22-51) U/L Urine Color Urine Clarity (CLEAR) Urine pH (5.0-7.5) PH Ur Specific [place] (1.002-1.030) Urine Protein (NEGATIVE) mg/dL Urine Glucose (UA) (NEGATIVE) mg/dL Urine Ketones (NEGATIVE) mg/dL Urine Occult Blood (NEGATIVE) Urine Nitrite (NEGATIVE) Urine Bilirubin (NEGATIVE) Urine Urobilinogen (NORMAL) E.U./dL Ur Leukocyte Esterase (NEGATIVE) Urine RBC (0-5) /HPF Urine WBC (0-3) /HPF Ur Squamous Epith Cells (<= Few) Urine Bacteria (None Seen) /HPF Ur Microscopic Review Urine Culture Comments ABX Reporting Has patient been on IV antibiotics over the past 48 hours?: Yes Assessment/Plan - Problem List (1) Right lower quadrant abdominal pain Impression: Sudden onset. Not associated with fever, white cells, Myalgia, or change in bowel habits. He has a previous history of diverticulosis. Current exam is without peritoneal findings. He has been seen by general surgery. CAT scan shows him to have either diverticulitis or appendicitis. General surgery feels patient can do well with just single agent Zosyn, no surgery at this time Plan: Admit inpatient status per surgery request Continue Zosyn, Day #2. Review surgery notes for today when available. Review blood cultures when they become available Serial abdominal exams Daily CBC (2) Syncope Conclusion/Plan: This is a gentleman who is already had vasovagal syncope in 2017. Seen at [facility]. The syncope is in association with terrible abdominal pain. He has no history of arrhythmias, already has a history of a stroke but this is not a posterior inferior cerebellar event, and I suspect he has had vasovagal syncope again today. He also had his beta-sincere reduced from 50-25 mg twice a day in the last week. Current medication reconciliation is to list him as 50 mg twice daily.Current echocardiogram shows a normal ejection fraction of 65-70%. Mild to moderate right atrial enlargement with right ventricular systolic pressure at rest 62 mmHg. He has mild mitral regurgitation. So far telemetry showed him to be in sinus rhythm. Plan: I failed to order telemetry for 24 hours, will do so now. Got another set of troponins and repeat was normal level again Get current list reconciled to make sure on 25 twice daily Resume metoprolol 25 mg twice daily Qualifiers: Syncope type: vasovagal syncope Qualified Code(s): R55 - Syncope and collapse (3) Abnormal echocardiogram findings without diagnosis Conclusion/Plan: This is found on reviewing his records from his stroke in 2009. But he has no diagnosis of congestive heart failure and his recent dyspnea on exertion is attributed to beta-sincere side effect. Plan: BNP this morning 116 Repeat echocardiogram as above. (4) Hyperglycemia Conclusion/Plan: No previous history of diabetes. He has had isolated hyperglycemia off and on the past but never severe to be diagnosed. Plan: A1c 5.6% this morning (5) Hematuria Conclusion/Plan: Previous bladder biopsy negative. Hematuria noted on ER visit to [place] in February 2017. Current CT of the abdomen shows a left renal mass. Ultrasound to be done in the outpatient setting. Qualifiers: Hematuria type: unspecified type Qualified Code(s): R31.9 - Hematuria, unspecified (6) CKD (chronic kidney disease) stage 3, GFR 30-59 ml/min Conclusion/Plan: in reviewing his medical records, this is stable. will give IVF since he is NPO. checking daily and creat slightly worse this am. avoid nephrotoxic meds.
[2018-10-12 09:04] LABS: HB2 TOTAL 12.9 g/dL; HEMOGLOBIN A1C 0.48 g/dL; HEMOGLOBIN A1C % 5.6 % (4.6-6.2)
[2018-10-12] MEDS: METOPROLOL TARTRATE 25 MG TABLET PO SCH ×2 (09:28→20:31)
[2018-10-12] MEDS: ENOXAPARIN 40 MG/0.4 ML SYRINGE SUBQ SCH (09:29)
[2018-10-12] MEDS: SODIUM CHLORIDE FLUSH 0.9% 10 ML SYRINGE IVP SCH ×3 (09:48→23:49)
[2018-10-12] MEDS: POLYETHYLENE GLYCOL 3350 17 GM PACKET PO SCH (09:49)
[2018-10-12] MEDS ORDERED: SODIUM CHLORIDE 0.9% 1,000 ML IV ONE (13:06)
--- NOTE | 2018-10-12 14:01 | PROVIDER PROGRESS NOTE ---
Subjective - Prog Note Date Prog Note Date: 10/12/18 Prog Note Time: 13:58 - Subjective Pt reports feeling: Improved (Reports no pain or other symptom) Objective - Vital Signs/Intake & Output Vital Signs: Vital Signs x48h Temp Pulse Resp BP BP Pulse Ox 10/12/18 12:06 36.5 C 74 18 142/67 H 94 10/12/18 09:28 132/69 H 10/12/18 08:26 36.5 C 88 18 132/69 H 93 Intake & Output: Intake & Output 10/09/18 10/10/18 10/11/18 10/12/18 23:59 23:59 23:59 23:59 Intake Total 400 66 Output Total 100 Balance 300 - Objective General Appearance: positive: No acute distress Eyes Bilateral: positive: Normal inspection ENT: positive: ENT inspection nml Neck: positive: Nml inspection Respiratory: positive: Chest non-tender Cardiovascular: positive: Regular rate & rhythm Abdomen: positive: Non-tender Back: positive: Nml inspection Skin: positive: Color nml - Lab Results Fish Bones: 10/12/18 04:45 10/12/18 04:45 Other Labs: Lab Results x24hrs 10/12/18 10/12/18 10/12/18 Range/Units 08:30 08:30 08:30 WBC (4.8-10.8) x10^3/uL RBC (4.70-6.10) 10^6/uL Hgb (14.0-18.0) g/dL Hct (42.0-52.0) % MCV (80.0-94.0) fL MCH (27.0-31.0) pg MCHC (32.0-36.0) g/dL RDW (12.0-15.0) % Plt Count (130-450) 10^3/uL MPV (7.4-11.4) fL Neut # (Auto) (1.5-6.6) 10^3/uL Lymph # (Auto) (1.5-3.5) 10^3/uL [place] # (Auto) (0.0-1.0) 10^3/uL Eos # (Auto) (0.0-0.7) 10^3/uL Baso # (Auto) (0.0-0.1) 10^3/uL Absolute Nucleated RBC x10^3/uL Nucleated RBC % /100WBC Sodium (135-145) mmol/L Potassium (3.5-5.0) mmol/L Chloride (101-111) mmol/L Carbon Dioxide (21-32) mmol/L Anion Gap (6-13) BUN (6-20) mg/dL Creatinine (0.6-1.2) mg/dL Estimated GFR (MDRD) (>89) Glucose (70-100) mg/dL Glycated Hemoglobin 5.6 (4.6-6.2) % Estim Average Glucose 114 H (70-100) Calcium (8.5-10.3) mg/dL Troponin I < 0.04 (<0.49) ng/mL B-Natriuretic Peptide 116 H (5-100) pg/mL 10/12/18 10/12/18 Range/Units 04:45 04:45 WBC 5.9 (4.8-10.8) x10^3/uL RBC 4.14 L (4.70-6.10) 10^6/uL Hgb 12.5 L (14.0-18.0) g/dL Hct 38.2 L (42.0-52.0) % MCV 92.3 (80.0-94.0) fL MCH 30.3 (27.0-31.0) pg MCHC 32.8 (32.0-36.0) g/dL RDW 13.3 (12.0-15.0) % Plt Count 133 (130-450) 10^3/uL MPV 8.8 (7.4-11.4) fL Neut # (Auto) 4.6 (1.5-6.6) 10^3/uL Lymph # (Auto) 0.6 L (1.5-3.5) 10^3/uL [place] # (Auto) 0.6 (0.0-1.0) 10^3/uL Eos # (Auto) 0.1 (0.0-0.7) 10^3/uL Baso # (Auto) 0.0 (0.0-0.1) 10^3/uL Absolute Nucleated RBC 0.01 x10^3/uL Nucleated RBC % 0.1 /100WBC Sodium 140 (135-145) mmol/L Potassium 4.4 (3.5-5.0) mmol/L Chloride 107 (101-111) mmol/L Carbon Dioxide 22 (21-32) mmol/L Anion Gap 11.0 (6-13) BUN 23 H (6-20) mg/dL Creatinine 1.9 H (0.6-1.2) mg/dL Estimated GFR (MDRD) 34 L (>89) Glucose 112 H (70-100) mg/dL Glycated Hemoglobin (4.6-6.2) % Estim Average Glucose (70-100) Calcium 8.6 (8.5-10.3) mg/dL Troponin I (<0.49) ng/mL B-Natriuretic Peptide (5-100) pg/mL Assessment/Plan - Problem List (1) Abdominal infection Impression: Pt has no pain currently. He also denies any other symptoms. His VS and labs are WNL. Plan to advance his diet as tolerated with possible discharge in the AM. Plan to give him a full course of antibiotics and perform an outpatient co lonoscopy in 6-8 weeks.
[2018-10-12] MEDS: metroNIDAZOLE 250 MG TABLET PO SCH ×2 (15:59→22:29)
[2018-10-12] MEDS: CIPROFLOXACIN 250 MG TABLET PO SCH (20:31)
[2018-10-13 05:03] LABS: BASOPHILS % (AUTO) 1.2 %; EOSINOPHILS # (AUTO) 0.3 10^3/uL (0.0-0.7); EOSINOPHILS % (AUTO) 6.6 %; HGB - HEMOGLOBIN 11.7 g/dL (14.0-18.0); LYMPHOCYTES # (AUTO) 0.5 10^3/uL (1.5-3.5); LYMPHOCYTES % (AUTO) 13.9 %; MEAN CORPUSCULAR HEMOGLOBIN 30.1 pg (27.0-31.0); MEAN CORPUSCULAR HGB CONC 32.8 g/dL (32.0-36.0); MEAN CORPUSCULAR VOLUME 91.8 fL (80.0-94.0); MEAN PLATELET VOLUME 8.4 fL (7.4-11.4); MONOCYTES # (AUTO) 0.4 10^3/uL (0.0-1.0); MONOCYTES % (AUTO) 11.1 %; NEUTROPHILS # (AUTO) 2.6 10^3/uL (1.5-6.6); NEUTROPHILS % (AUTO) 67.2 %; PLT - PLATELET COUNT 125 10^3/uL (130-450); RED BLOOD COUNT 3.88 10^6/uL (4.70-6.10); RED CELL DISTRIBUTION WIDTH 13.7 % (12.0-15.0); WHITE BLOOD COUNT 3.9 x10^3/uL (4.8-10.8)
[2018-10-13 05:20] LABS: CALCIUM 8.3 mg/dL (8.5-10.3); CREATININE 1.4 mg/dL (0.6-1.2)
[2018-10-13] MEDS: metroNIDAZOLE 250 MG TABLET PO SCH (06:09)
--- NOTE | 2018-10-13 07:57 | Discharge Plan ---
Discharge Plan Disposition: Home, Self Care Condition: Fair Prescriptions: HYDROcod/ACETAM 5/325 [[place] 5/325] 1 tab PO Q4HR PRN #30 tablet PRN Reason: Pain Ciprofloxacin [Cipro] 250 mg PO BID #14 tablet metroNIDAZOLE [Flagyl] 500 mg PO Q8H #21 tablet Diet: Regular Activity Restrictions: Activity as Tolerated Instruction Topics: Metronidazole tablets or capsules, Ciprofloxacin tablets, Diverticulosis Diverticulitis Additional Instructions or Follow Up instructions: you were admitted to the hospital with sudden abdominal pain that caused you to pass out. The abdominal pain is secondary to diverticulitis. We watched you for 2 days to make sure the diverticulitis did not need to be operated on and you did well with resting your bowel, and taking antibiotics. Dr. Robles, the general surgeon, feels you are safe to go home and he would like you to take 7 more days of antibiotics to make sure. Please see him in follow-up in the next 2 weeks. As for your passing out, we think it was a simple vasovagal response (fainting) from severe pain. While you are in the hospital we will observe do to make sure that your heart rhythm was stable and it was. And that your heart was pumping normally with an echocardiogram and the echocardiogram was normal. Over the next couple of weeks, eat a low fiber diet. Take antibiotics. If you develop fever, chills, bloody diarrhea, or severe abdominal pain that will not go away, please return to the emergency room. The only other issue we saw for you was that of an abnormal kidney cyst. We had done a CAT scan of your abdomen to look at the diverticulitis. It showed us that there was an incidental finding of a kidney cyst. You will need an ultrasound of the kidney. Please make an appointment with your primary care provider, Dr. James, in the next 1-2 weeks to get that ultrasound scheduled. No Smoking: If you smoke, Please STOP! Call for help. Follow-up with: Manuel James MD [Primary Care Provider] -
[2018-10-13 08:05] VITALS: BP 138/69
[2018-10-13] MEDS: CIPROFLOXACIN 250 MG TABLET PO SCH (08:24)
[2018-10-13] MEDS: METOPROLOL TARTRATE 25 MG TABLET PO SCH (08:24)
[2018-10-13] MEDS: ENOXAPARIN 40 MG/0.4 ML SYRINGE SUBQ SCH (08:26)
[2018-10-13] MEDS: SODIUM CHLORIDE FLUSH 0.9% 10 ML SYRINGE IVP SCH (08:26)
[2018-10-13] MEDS: POLYETHYLENE GLYCOL 3350 17 GM PACKET PO SCH (08:26)
--- NOTE | 2018-10-13 11:29 | DISCHARGE SUMMARY ---
Physician: Rosi Delgadillo MD DATE OF ADMISSION: 10/11/2018 DATE OF DISCHARGE: 10/13/2018 DISCHARGE DIAGNOSES 1. Right lower quadrant abdominal pain. 2. Diverticulitis. 3. Vasovagal syncope. 4. Abnormal echocardiogram history. 5. Hyperglycemia. 6. Hematuria. 7. Abnormal CT of abdomen with cystic kidney mass. 8. Chronic kidney disease stage 3. 9. Pulmonary hypertension. DISCHARGE MEDICATIONS 1. Plavix 75 mg a day. 2. Lisinopril 20 mg a day. 3. Metoprolol tartrate 50 mg p.o. b.i.d., was recently reduced to 25 mg p.o. b.i.d. by PCP. 4. Spironolactone 25 mg daily. 5. [place] 5/325 tablet every 4 hours as needed. 6. Cipro 250 mg p.o. b.i.d. #14. 7. Flagyl 500 mg p.o. q.8 hours #21. PRINCIPAL PROCEDURES 1. Surgery consult with Dr. Robles. 2. Abdominal and pelvis CT with bilateral dependent lung changes in his lung bases. Kidneys have cyst and hypodensities. No stones or hydronephrosis. In the left kidney, there is a suggestion of a solid 3.1 x 2.2 x 2.7 upper pole left renal mass. Liver has subcentimeter hypodensities, which are too small to characterize. The peritoneal cavity has a 0.2 x 3.5 cm low density fluid collection in the right lower quadrant near the inguinal canal that is intimately associated with the sigmoid colon with the presumed appendix not being separately visualized. There is subtle fat stranding in the surrounding area. Diverticulosis of the sigmoid bowel. Prostatic hypertrophy with calcifications. Because there is a suspected left renal mass, Radiology recommends an outpatient ultrasound on a routine outpatient basis to determine if this is a hyperdense cyst. 3. Chest x-ray. His chest x-ray shows linear opacities at the lung bases. Otherwise, no acute cardiopulmonary changes. Echocardiogram was done because 2009 echo had an ejection fraction of 40% to 45% with septal hypokinesis and grade 1 diastolic dysfunction with mild aortic insufficiency. Today's echo shows left ventricular systolic function normal with an ejection fraction of 65% to 70%. Normal diastole. Right ventricular systolic function normal. Moderately abnormal right heart pressures with an RVSP at rest of 62 mmHg. HOSPITAL COURSE: The patient is an 83-year-old, white male who lives in his own home. His has been for a few years, and he sold their home and moved to an apartment in [place]. He is considered independent with his activities of daily living. He still drives, pays his own bills, walks on the beach at least half a mile to a mile every day in the summer. In the winter, he tends to be a little bit more sedentary. He does have a history of vasovagal syncope in 2017, for which he was seen at [facility]. With that episode of vasovagal syncope, his echocardiogram was abnormal. He presented to his primary care provider with shortness of breath over the last month or two, felt to be a possible beta sincere problem and his beta sincere was reduced from 50 mg b.i.d. to 25 mg p.o. b.i.d. He also has a previous history of a basal ganglia infarct in 2009. He was sitting on the toilet, when he had a sudden onset of excruciating right lower quadrant pain that caused him to pass out. He came to the emergency room and had no fever, no white cell count. Mild tenderness on physical exam of his abdomen. CT of the abdomen was done and shown as above. He was consulted on by Dr. Robles. Dr. Robles, General Surgery, felt the patient did not need to go to the operating room, but recommended admission to our service with IV antibiotics and n.p.o. status. The patient remained afebrile and had no white cell count. Over the course of 48 hours, his abdominal exam did not change and pain slowly improved to almost be nothing. He did have one short episode of left lower quadrant pain that resolved quickly. We started feeding him and we advanced him to a regular diet, which he tolerated without any difficulty. While he does have residual deficit of his previous stroke with facial asymmetry and a slight left leg drag, the patient is ambulatory in his room without any difficulty. After 48 hours, the patient was felt stable enough to return home. Dr. Robles is postulating that he has sigmoid diverticulitis that has swapped over to the right side, covering his appendix. He does not have appendicitis, but more diverticulitis. A repeat echocardiogram was done because of the outpatient history of shortness of breath and his previous echo showing reduced ejection fraction. This current echo is normal, other than for pulmonary hypertension. His medications are not changed. He is instructed to return to the 25 mg p.o. b.i.d. of metoprolol. He is also to be discharged on 7 days of oral antibiotics. That was done the day before discharge and he had no fever, no increased pain. Dr. Robles would like to see him in 2-[address] Robles plans on possibly doing a colonoscopy in the next 1-2 months. The patient did have hematuria and hyperglycemia. Hyperglycemia was evaluated with an A1c. A1c was 5.6%. As such, the hyperglycemia is not yet associated with diabetes, but should be watched in the outpatient setting. Maximum glucose 144. Fasting glucose 98. Hematuria was noted on UA. An incidental finding on the CT of the abdomen is that he has a dense cyst or mass of the left kidney. That will need outpatient followup with an ultrasound. The patient is asked to follow up with Dr. James and Dr. Robles in the outpatient setting. PHYSICAL EXAMINATION VITAL SIGNS: At discharge, his temperature is 36.3, pulse 77, blood pressure 138/69, respirations 18, 92% on room air. GENERAL: He is an alert, elderly man who looks his stated age. Slight left facial asymmetry and change in phonation because of his residual stroke deficits. He also slightly, slightly drags his left leg. NECK: Supple without carotid bruits. LUNGS: Clear to auscultation and percussion. PMI is normally placed with a soft systolic ejection murmur at the left lower sternal border. No leg edema. ABDOMEN: Soft, nontender, without organomegaly and no masses palpable. Normal bowel sounds. Greater than 30 minutes was spent in coordinating discharge. (cont.) TD: 10/13/2018 11:16 combined 10/13/18jll (orig.) TD: 10/13/2018 10:59 SWAPNA
--- NOTE | 2018-10-18 08:21 | CONSULTATION NOTE ---
Referring Provider Consult Date: 10/11/18 Chief Complaint - Chief Complaint Chief Complaint: abdominal pain History of Present Illness - History of Present Illness HPI Comment/Other: 83 yo man presented to the ER with acute RLQ pain that started this morning. It has since resolved. Also had a syncopal episode at home. Denies any other abdominal symptoms or surgery. He did have a stroke in 2009. History - Past Medical History Cardiovascular: reports: Hypertension Neuro: reports: CVA MRSA Hx?: No - Past Surgical History HEENT: reports: Tonsil/Adenoidectomy Derm: reports: Other - POLST Patient has POLST: No Meds/Allgy - Home Medications Home Medications: Ambulatory Orders Medication Instructions Recorded Confirmed Clopidogrel Bisulfate [Clopidogrel] 75 mg PO DAILY 10/11/18 10/11/18 Lisinopril 20 mg PO DAILY 10/11/18 10/11/18 Metoprolol Tartrate 50 mg PO BID 10/11/18 10/11/18 Spironolactone 25 mg PO DAILY 10/11/18 10/11/18 Ciprofloxacin [Cipro] 250 mg PO BID #14 tablet 10/13/18 HYDROcod/ACETAM 5/325 [[place] 5/325] 1 tab PO Q4HR PRN #30 tablet 10/13/18 metroNIDAZOLE [Flagyl] 500 mg PO Q8H #21 tablet 10/13/18 - Allergies Allergies/Adverse Reactions: Allergies Allergy/AdvReac Type Severity Reaction Status Date / Time No Known Drug Allergies Allergy Verified 10/11/18 09:38 Review of Systems - Constitutional Constitutional: reports: Fatigue - Cardiovascular Cariovascular: reports: Syncope - Gastrointestinal Gastrointestinal: reports: Abdominal pain Exam - Vital Signs Reviewed Vital Signs: Yes - Physical Exam General Appearance: positive: No acute distress Eyes Bilateral: positive: Normal inspection ENT: positive: ENT inspection nml Respiratory: positive: Chest non-tender Cardiovascular: positive: Regular rate & rhythm Abdomen: positive: Non-tender Back: positive: Nml inspection Skin: positive: Color nml Extremities: positive: Non-tender Neurologic/Psychiatric: positive: Oriented x3 Conclusion/Plan - Diagnosis Diagnosis: Perforated viscous - Plan Plan: On CT, pt appears to have a fluid collection in the RLQ without air with some adjacent inflammatory changes. His sigmoid colon overlies the cecum in that region and he does have diverticuli, so most likely he has diverticulitis vs appendicitis. However, he currently has no pain or tenderness and no WBC elevation. I think it is reasonable to admit the pt on antibiotics and observe overnight for progression. If his clinical picture deteriorates, we will revisit the possibility of surgery. I discussed this with the pt and he agrees. - Lab Results Fish Bones: 10/13/18 04:55 10/13/18 04:55
== END 2018-10-13 12:00 | disposition home or self-care (01) | DRG 392 ==
LOC: EDUNIT# → ED 09:31 → MS2 15:57
PROVIDERS: ADMIT Specialist; ATTEND Specialist
DX: R10.9 Unspecified abdominal pain (principal); N39.0 Urinary tract infection, site not specified; K57.32 Diverticulitis of large intestine without perforation or abscess without bleeding; R06.00 Dyspnea, unspecified; I13.0 Hypertensive heart and chronic kidney disease with heart failure and stage 1 through stage 4 chronic kidney disease, or unspecified chronic kidney disease; R55 Syncope and collapse; R73.9 Hyperglycemia, unspecified; R31.9 Hematuria, unspecified; N28.1 Cyst of kidney, acquired; I27.20 Pulmonary hypertension, unspecified; Z86.73 Personal history of transient ischemic attack (TIA), and cerebral infarction without residual deficits; R00.0 Tachycardia, unspecified; N18.3 Chronic kidney disease, stage 3 (moderate); I50.9 Heart failure, unspecified; D64.9 Anemia, unspecified; Z87.891 Personal history of nicotine dependence; Z66 Do not resuscitate; R35.0 Frequency of micturition; R39.15 Urgency of urination; R35.1 Nocturia; R41.3 Other amnesia; I34.0 Nonrheumatic mitral (valve) insufficiency; R94.31 Abnormal electrocardiogram [ECG] [EKG]
CPT/HCPCS: 36415; 71046; 74176; 80048; 80053; 81001; 81003; 83036; 83605; 83690; 83880; 84484; 85025; 87040; 87086; 93005; 93306; 96365; 96367; 99284

== ENCOUNTER 2019-05-18 12:17 | Outpatient (CLI) | payer MEDICARE ==
[2019-05-18 17:35] LABS: BASOPHILS % (AUTO) 0.2 %; EOSINOPHILS # (AUTO) 0.1 10^3/uL (0.0-0.7); EOSINOPHILS % (AUTO) 0.9 %; HGB - HEMOGLOBIN 14.1 g/dL (14.0-18.0); LYMPHOCYTES # (AUTO) 1.1 10^3/uL (1.5-3.5); LYMPHOCYTES % (AUTO) 10.8 %; MEAN CORPUSCULAR HEMOGLOBIN 30.4 pg (27.0-31.0); MEAN CORPUSCULAR HGB CONC 32.3 g/dL (32.0-36.0); MEAN CORPUSCULAR VOLUME 94.2 fL (80.0-94.0); MEAN PLATELET VOLUME 11.3 fL (7.4-11.4); MONOCYTES # (AUTO) 0.7 10^3/uL (0.0-1.0); MONOCYTES % (AUTO) 6.9 %; NEUTROPHILS # (AUTO) 8.4 10^3/uL (1.5-6.6); NEUTROPHILS % (AUTO) 80.8 %; PLT - PLATELET COUNT 181 10^3/uL (130-450); RED BLOOD COUNT 4.64 10^6/uL (4.70-6.10); RED CELL DISTRIBUTION WIDTH 14.1 % (12.0-15.0); WHITE BLOOD COUNT 10.4 x10^3/uL (4.8-10.8)
[2019-05-18 18:02] LABS: ALBUMIN/GLOBULIN RATIO 1.4 (1.0-2.2); BILIRUBIN,TOTAL 0.7 mg/dL (0.2-1.0); CALCIUM 9.6 mg/dL (8.5-10.3); CREATININE 1.3 mg/dL (0.6-1.2); TOTAL PROTEIN 6.8 g/dL (6.7-8.2)
[2019-05-18 18:03] LABS: MICROALBUM/CREATININE RATIO,UR 16.5 ug/mg (<30.0)
[2019-05-18 18:22] LABS: FERRITIN 57.6 ng/mL (23.9-336.2)
[2019-05-18 18:32] LABS: HB2 TOTAL 15.1 g/dL; HEMOGLOBIN A1C 0.57 g/dL; HEMOGLOBIN A1C % 5.6 % (4.6-6.2)
== END 2019-05-18 12:18 | disposition home or self-care (01) ==
LOC: LAB.S 12:17
PROVIDERS: ATTEND Internal Medicine
DX: I10 Essential (primary) hypertension (principal); R73.02 Impaired glucose tolerance (oral); D64.9 Anemia, unspecified
CPT/HCPCS: 36415; 80053; 82043; 82570; 82607; 82728; 83036; 85025

== ENCOUNTER 2020-10-10 08:07 | Outpatient (CLI) | payer MEDICARE ==
[2020-10-10 14:35] LABS: BASOPHILS % (AUTO) 0.7 %; EOSINOPHILS # (AUTO) 0.1 10^3/uL (0.0-0.7); HGB - HEMOGLOBIN 14.4 g/dL (14.0-18.0); LYMPHOCYTES # (AUTO) 1.5 10^3/uL (1.5-3.5); LYMPHOCYTES % (AUTO) 31.7 %; MEAN CORPUSCULAR HEMOGLOBIN 29.5 pg (27.0-31.0); MEAN CORPUSCULAR HGB CONC 32.1 g/dL (32.0-36.0); MEAN PLATELET VOLUME 10.9 fL (7.4-11.4); MONOCYTES # (AUTO) 0.4 10^3/uL (0.0-1.0); MONOCYTES % (AUTO) 9.5 %; NEUTROPHILS # (AUTO) 2.6 10^3/uL (1.5-6.6); NEUTROPHILS % (AUTO) 55.9 %; PLT - PLATELET COUNT 151 10^3/uL (130-450); RED BLOOD COUNT 4.88 10^6/uL (4.70-6.10); RED CELL DISTRIBUTION WIDTH 13.3 % (12.0-15.0); WHITE BLOOD COUNT 4.6 x10^3/uL (4.8-10.8)
[2020-10-10 15:50] LABS: ALBUMIN/GLOBULIN RATIO 1.5 (1.0-2.2); ALKALINE PHOSPHATASE 82 IU/L (42-121); ALT ALANINE AMINOTRANSFERASE 12 IU/L (10-60); AST ASPARTATE AMINOTRANSFERASE 13 IU/L (10-42); BILIRUBIN,TOTAL 0.9 mg/dL (0.2-1.0); BUN - BLOOD UREA NITROGEN 23 mg/dL (6-20); CALCIUM 9.6 mg/dL (8.5-10.3); CARBON DIOXIDE - CO2 23 mmol/L (21-32); CHLORIDE 108 mmol/L (101-111); CHOL/HDL RATIO 3.3 (<5.0); CHOLESTEROL 164 mg/dL; CREATININE 1.3 mg/dL (0.6-1.2); GLUCOSE 111 mg/dL (70-100); HDL CHOLESTEROL 49 mg/dL; LDL CHOLESTEROL,CALCULATED 97 mg/dL; SODIUM 139 mmol/L (135-145); TOTAL PROTEIN 6.6 g/dL (6.7-8.2); VLDL CHOLESTEROL 18 mg/dL
== END 2020-10-10 08:08 | disposition home or self-care (01) ==
LOC: LAB.S 08:07
PROVIDERS: ATTEND Registered Nurse
DX: R73.02 Impaired glucose tolerance (oral) (principal); D64.9 Anemia, unspecified; I10 Essential (primary) hypertension
CPT/HCPCS: 36415; 80053; 80061; 83721; 84443; 85025

== ENCOUNTER 2021-07-01 15:34 | Outpatient (CLI) | payer MEDICARE | END 2021-07-01 15:35 | disposition critical access hospital (66) | LOC: EMS 15:34 | DX: R29.898 Other symptoms and signs involving the musculoskeletal system (principal); R47.81 Slurred speech | CPT/HCPCS: A0425; A0429 ==

== ENCOUNTER 2021-07-01 16:14 | Observation (INO) | payer MEDICARE ==
--- NOTE | 2021-07-01 16:28 | ED Physician Documentation ---
PD HPI FOCAL NEURO - Stated complaint Stated Complaint: STROKE LIKE SX - Chief complaint Chief Complaint: Neuro - History obtained from History obtained from: Patient - Additional information Additional information: 86-year-old gentleman with a stroke 10 years ago on aspirin and Plavix presents with a resolved episode of slurred speech and right arm weakness starting at noon today and lasting for about 2 hours. He feels completely back to normal. There is no associated headache. No history of A. fib. Review of Systems Ten Systems: 10 systems reviewed and negative Constitutional: reports: Reviewed and negative Eyes: reports: Reviewed and negative Ears: reports: Reviewed and negative PD PAST MEDICAL HISTORY - Past Medical History Cardiovascular: Hypertension Respiratory: None Neuro: CVA Endocrine/Autoimmune: None GI: Diverticulitis : Other HEENT: Other Psych: None Musculoskeletal: None Derm: None - Past Surgical History Past Surgical History: Yes HEENT: Tonsil/Adenoidectomy Derm: Other - Present Medications Home Medications: Ambulatory Orders Medication Instructions Recorded Confirmed Clopidogrel Bisulfate [Clopidogrel] 75 mg PO DAILY 10/11/18 10/11/18 Metoprolol Tartrate 50 mg PO BID 10/11/18 10/11/18 Spironolactone 25 mg PO DAILY 10/11/18 10/11/18 lisinopriL [Lisinopril] 20 mg PO DAILY 10/11/18 10/11/18 Ciprofloxacin [Cipro] 250 mg PO BID #14 tablet 10/13/18 HYDROcod/ACETAM 5/325 [[place] 5/325] 1 tab PO Q4HR PRN #30 tablet 10/13/18 metroNIDAZOLE [Flagyl] 500 mg PO Q8H #21 tablet 10/13/18 cephALEXin [Keflex] 500 mg PO TID #21 capsule 05/09/20 - Allergies Allergies/Adverse Reactions: Allergies Allergy/AdvReac Type Severity Reaction Status Date / Time No Known Drug Allergies Allergy Verified 07/01/21 16:23 - Social History Does the pt smoke?: No Smoking Status: Never smoker Does the pt drink ETOH?: Yes Does the pt have substance abuse?: No - Immunizations Immunizations are current?: Yes - POLST Patient has POLST: No POLST Status: DNR (He has advanced directive at home.) PD ED PE NORMAL - Vitals Vital signs reviewed: Yes - General General: Alert and oriented X 3, No acute distress - HEENT HEENT: PERRL, EOMI (He has a droopy right eyelid, he says that is his baseline) - Neck Neck: Supple, no meningeal sign, No bony TTP - Cardiac Cardiac: RRR, No murmur - Respiratory Respiratory: No respiratory distress, Clear bilaterally - Abdomen Abdomen: Non tender - Back Back: No CVA TTP, No spinal TTP - Derm Derm: Normal color, Warm and dry - Extremities Extremities: No edema, No calf tenderness / cord - Neuro Neuro: Alert and oriented X 3, Normal speech NIHSS - Time Time: 16:25 - Level of Consciousness Level of consciousness: (0) Alert, Keenly responsive LOC Questions: (0) Answers both Q's correct LOC Commands: (0) Performs both correctly - Gaze Best Gaze: (0) Normal - Visual Visual: (0) No loss - Facial Palsy Facial Palsy: (0) Normal, symmetrical movement - Motor Arms (both separate) Motor Arm (right): (0) No drift Motor Arm (left): (0) No drift - Motor Legs (both separate) Motor Leg (right): (0) No drift Motor Leg (left): (0) No drift - Limb Ataxia Limb Ataxia: (0) Absent - Sensory Sensory: (0) Normal - Best Language Best Language: (0) No aphasia - Dysarthria Dysarthria: (0) Normal - Extinction and Inattention (formally neg Extinction and inattention: (0) No abnormality - Total Score/Results Total Score/Result: 0 Results - Vitals Vitals: Vital Signs - 24 hr 07/01/21 16:23 Temperature 36.9 C Heart Rate 114 H Respiratory 18 Rate Blood Pressure 160/94 H O2 Saturation 95 Oxygen O2 Source Room air - EKG (time done) 1636 Rate: Rate (enter#) (100) Rhythm: NSR (With PAC Short sinus pause) [place]: Normal Intervals: Normal IN QRS: Normal Ischemia: Normal ST segments - Labs Labs: Laboratory Tests 07/01/21 07/01/21 07/01/21 16:52 16:52 17:12 WBC 5.1 RBC 5.10 Hgb 15.4 Hct 47.2 MCV 92.5 MCH 30.2 MCHC 32.6 RDW 13.7 Plt Count 151 MPV 10.8 Neut # (Auto) 3.7 Lymph # (Auto) 0.7 L [place] # (Auto) 0.5 Eos # (Auto) 0.1 Baso # (Auto) 0.0 Absolute Nucleated RBC 0.00 Nucleated RBC % 0.0 Sodium 140 Potassium 4.3 Chloride 103 Carbon Dioxide 26 Anion Gap 11.0 BUN 22 H Creatinine 1.3 H Estimated GFR (MDRD) 52 L Glucose 102 H Calcium 9.3 Nasal Adenovirus (PCR) NOT DETECTED Nasal B. parapertussis DNA (PCR) NOT DETECTED Nasal Coronavir 229E PCR NOT DETECTED Nasal Coronavir HKU1 PCR NOT DETECTED Nasal Coronavir NL63 PCR NOT DETECTED Nasal Coronavir OC43 PCR NOT DETECTED Nasal Enterovir/Rhinovir PCR NOT DETECTED Nasal Influenza B PCR NOT DETECTED Nasal Influenza A PCR NOT DETECTED Nasal Parainfluen 1 PCR NOT DETECTED Nasal Parainfluen 2 PCR NOT DETECTED Nasal Parainfluen 3 PCR NOT DETECTED Nasal Parainfluen 4 PCR NOT DETECTED Nasal RSV (PCR) NOT DETECTED Nasal B.pertussis DNA PCR NOT DETECTED Nasal C.pneumoniae (PCR) NOT DETECTED Janusz Human Metapneumo PCR NOT DETECTED Nasal M.pneumoniae (PCR) NOT DETECTED Nasal SARS-CoV-2 (PCR) NOT DETECTED PD MEDICAL DECISION MAKING - ED course ED course: 86-year-old gentleman with history of stroke on dual antiplatelet therapy presents with resolved TIA involving the right arm and speech center. CT angiography of the head and neck were unremarkable. Will be placed in observ ation to rule out paroxysmal atrial fibrillation and rapid recurrence and spoke with Dr. Segura for same at 6:19 PM. Departure - Departure Disposition: ED Place in Observation Clinical Impression: TIA (transient ischemic attack) Condition: Good
[2021-07-01] MEDS ORDERED: IOVERSOL 320 100 ML VIAL IVP ONE ×2 (16:38→17:45)
[2021-07-01 17:01] LABS: BASOPHILS % (AUTO) 0.6 %; EOSINOPHILS # (AUTO) 0.1 10^3/uL (0.0-0.7); EOSINOPHILS % (AUTO) 1.6 %; HCT - HEMATOCRIT 47.2 % (42.0-52.0); HGB - HEMOGLOBIN 15.4 g/dL (14.0-18.0); LYMPHOCYTES # (AUTO) 0.7 10^3/uL (1.5-3.5); LYMPHOCYTES % (AUTO) 14.2 %; MEAN CORPUSCULAR HEMOGLOBIN 30.2 pg (27.0-31.0); MEAN CORPUSCULAR HGB CONC 32.6 g/dL (32.0-36.0); MEAN CORPUSCULAR VOLUME 92.5 fL (80.0-94.0); MEAN PLATELET VOLUME 10.8 fL (7.4-11.4); MONOCYTES # (AUTO) 0.5 10^3/uL (0.0-1.0); MONOCYTES % (AUTO) 10.5 %; NEUTROPHILS # (AUTO) 3.7 10^3/uL (1.5-6.6); NEUTROPHILS % (AUTO) 72.9 %; PLT - PLATELET COUNT 151 10^3/uL (130-450); RED CELL DISTRIBUTION WIDTH 13.7 % (12.0-15.0); WHITE BLOOD COUNT 5.1 x10^3/uL (4.8-10.8)
[2021-07-01 17:10] LABS: CALCIUM 9.3 mg/dL (8.5-10.3); CREATININE 1.3 mg/dL (0.6-1.2); POTASSIUM 4.3 mmol/L (3.5-5.0)
--- NOTE | 2021-07-01 18:01 | CT Report ---
PROCEDURE: ANGIO HEAD W/WO INDICATIONS: TIA CONTRAST: IV CONTRAST: Optiray 320 ml: 80 PO CONTRAST: *NO PO CONTRAST TECHNIQUE: Precontrast 4.5 mm thick angled axial sections acquired from the foramen magnum to the vertex. Afte r the administration of intravenous contrast, 1 mm thick sections acquired through the [place] of [place] is. Postcontrast 4.5 mm thick sections then re-acquired from the foramen magnum to the vertex. 3-di mensional cmhqyka-peeoeyqfo-vlwkftphwc (MIP) and/or volume rendering reformats were acquired of the c entral intracranial vasculature. For radiation dose reduction, the following was used: automated ex posure control, adjustment of mA and/or kV according to patient size. COMPARISON: Correlation is made with the accompanying neck CT angiogram, 07/01/2021. FINDINGS: Image quality: There is streak artifact seen through the skull base. Anterior circulation: Intracranial internal carotid arteries are normal in size and flow. The flow within the paired anterior cerebral arteries is normal and symmetric. The flow within the middle cer ebral arteries is normal and symmetric. The anterior communicating artery is seen. No aneurysms are seen. Posterior circulation: Visualized portions of the vertebral arteries demonstrate normal caliber, and join to form a normal appearing basilar artery. Flow within the posterior cerebral arteries is norm al and symmetric. No aneurysms are seen. CSF spaces: Ventricles are normal in size and shape. Basal cisterns are patent. No extra-axial flu id collections. Brain: No midline shift. No intracranial bleeds or masses. Guerra-white matter interface appears int act. Skull and face: Calvarium and facial bones appear intact, without suspicious lesions. Sinuses: Visualized sinuses and mastoids are clear. IMPRESSION: No significant intracranial arterial abnormalities are seen. No intracranial hemorrhage is seen. No significant intracranial abnormality is seen. Reviewed by: Mark Leonard MD on 07/01/2021 4:59 PM [place]APIN[place]O Approved by: Mark Leonard MD on 07/01/2021 4:59 PM AKDERRICK Station ID: [id number]
--- NOTE | 2021-07-01 18:05 | CT Report ---
PROCEDURE: ANGIO NECK W INDICATIONS: TIA CONTRAST: IV CONTRAST: Optiray 320 ml: 80 PO CONTRAST: *NO PO CONTRAST TECHNIQUE: After the administration of intravenous contrast, 1.5 mm axial sections acquired from the aortic arch to the [place] of [place]. Coronal 3-D maximum intensity projection (MIP) and/or volume rendering ref ormats were then performed. For radiation dose reduction, the following was used: automated exposur e control, adjustment of mA and/or kV according to patient size. COMPARISON: Correlation is made with the accompanying head CT angiogram, 07/01/2021. FINDINGS: Image quality: Excellent. Carotid system: The great vessels demonstrate a conventional anatomy as they arise from the aortic a rch. The origins of the common carotid arteries appear patent. The common carotid arteries demonstr ate normal calibers and courses. The bifurcation regions appear normal bilaterally. The internal ca rotid arteries demonstrate normal caliber and course. Posterior circulation: The origins of the vertebral arteries appear patent. The more superior porti ons of the vertebral arteries demonstrate normal course and caliber. They join to form a normal appe aring basilar artery. Soft tissues: Visualized neck soft tissues demonstrate no suspicious abnormalities. The thyroid is normal in size and there are no incidental findings. Bones: No suspicious bony lesions. Visualized cervical spine appears normally aligned. Age-approp riate degenerative changes are seen. IMPRESSION: No hemodynamically significant stenosis can be seen within the arteries of the neck. The estimate of stenosis included in the report of the imaging study was calculated using the NASCET method Reviewed by: Mark Leonard MD on 07/01/2021 5:04 PM [place]IN[place]O Approved by: Mark Leonard MD on 07/01/2021 5:04 PM AKDERRICK Station ID: [id number]
[2021-07-01 18:10] LABS: B. PARAPERTUSSIS- RESP PCR PAN NOT DETECTED; B. PERTUSSIS- RESP PCR PANEL NOT DETECTED; C. PNEUMONIAE- RESP PCR PANEL NOT DETECTED; CORONAVIRUS 229E-RESP PCR NOT DETECTED; CORONAVIRUS HKU1-RESP PCR NOT DETECTED; CORONAVIRUS NL63-RESP PCR NOT DETECTED; CORONAVIRUS OC43-RESP PCR NOT DETECTED; HUMAN METAPNEUMOVIRUS NOT DETECTED; INFLUENZA A- RESP PCR PANEL NOT DETECTED; INFLUENZA B - RESP PCR PANEL NOT DETECTED; M. PNEUMONIAE- RESP PCR PANEL NOT DETECTED; PARAINFLUENZA VIRUS 1 NOT DETECTED; PARAINFLUENZA VIRUS 2 NOT DETECTED; PARAINFLUENZA VIRUS 3 NOT DETECTED; PARAINFLUENZA VIRUS 4 NOT DETECTED; RHINOVIRUS/ENTEROVIRUS NOT DETECTED; RSV- RESP PCR PANEL NOT DETECTED; SARS-CoV-2 -RESP PCR PANEL NOT DETECTED
[2021-07-01] MEDS ORDERED: ONDANSETRON 4 MG/2 ML VIAL IVP PRN (18:27)
[2021-07-01] MEDS ORDERED: SODIUM CHLORIDE FLUSH 0.9% 10 ML SYRINGE IVP PRN (18:27)
[2021-07-01] MEDS ORDERED: ACETAMINOPHEN 325 MG TABLET PO PRN (18:27)
[2021-07-01] MEDS: SODIUM CHLORIDE 0.9% 1,000 ML IV SCH (20:10)
[2021-07-01] MEDS: METOPROLOL TARTRATE 25 MG TABLET PO SCH (21:17)
--- NOTE | 2021-07-01 21:52 | HISTORY & PHYSICAL EXAMINATION ---
Chief Complaint - Chief Complaint Chief Complaint: Focal Neuro Defecit <Manuel Alas - Last Filed: 07/02/21 00:46> History of Present Illness - Admitted From Admitted From:: Emergency Department - History Obtained From Records Reviewed: Skylar nelsy Carol History obtained from: Patient Exam Limitations: None <Manuel Alas - Last Filed: 07/02/21 00:46> - History of Present Illness HPI Comment/Other: Zhanna is a pleasant and well appearing 86yo male who was admitted to inpatient service after a suspected TIA. His complaint started this morning as he felt a numbness and tingling in his R palm that progressed up his arm, right side of face, and right leg. He reports that this approximately lasted about 20 minutes. He also noticed that he had trouble walking and speaking on the phone to his son. He reports that his symptoms entirely resolved upon arrival to the ED via Ambulance. In the ED an EKG, CT Head/neck, CBC,and CMP were ordered and reviewed with no overt abnormalities indicative of a stroke.He is currently not experiencing any symptoms and is resting comfortably in his bed. (Manuel Alas) History - Past Medical History Cardiovascular: reports: Congestive heart failure (November 2009. Echocardiogram showed an ejection fraction of 40-45%. Septal hypokinesis. Grade 1 diastolic dysfunction. Mild aortic regurgitation, trace tricuspid regurgitation without pulmonary hypertension.), ), Hypertension Respiratory: reports: None, Other (Dyspnea on Exertion) Neuro: reports: CVA (November 14, 2009. Presented as speech difficulty and problems with walking. CT of head was negative. Echocardiogram showed new congestive heart failure. Old lacunar infarcts were noted. Carotid Dopplers without hemodynamically significant carotid artery plaque or stenosis. EKG was sinus tachy) Endocrine/Autoimmune: reports: None GI: reports: Diverticulitis : reports: Other (October 2018 renal mass) HEENT: reports: Other Psych: reports: None Musculoskeletal: reports: None Derm: reports: None MRSA Hx?: No Other Past Medical History: Mild anemia 2009. 3 sets of Hemoccult cards negative.Ferritin normal at 42.9. - Past Surgical History HEENT: reports: Tonsil/Adenoidectomy Derm: reports: Other - Family & Social History Family History Comment/Other: Mother of a stroke. Dad of cancer and also had COPD. Sister of unknown causes. She went to bed one night and never woke up. 1 son is in good health, and lives in [place] but one son has chemical dependency, on methadone and lives in [place]. Living arrangement: At home Living Situation: Alone (Caregivers come by twice a week) Social History Notes: He use to live with his in [place]. She has developed progressive dementia and he was her caregiver. She 3 years ago. His younger son used to live with them. He and his significant other helped Mr. Chao take care of his . They cooked, kept the house clean. They lived together for about 5 years. When his , he really wanted his son to leave the house. The son still has problems with substance abuse. So Mr. Chao bought him a small house in [place] and his son lives in [place] with a significant other. He finds it easier to have the distance. His second son lives in [place] with his partner and they adoped 2 kids. He is a non-smoker. He started smoking at the age of 16. Smoked about 1 pack/day and stopped in 1989. He likes 2 glasses of wine anywhere from 3-4 times a week. A Martini is daily. No history of recreational substance abuse. - Substance History Use: Uses substance without health or social issues: Alcohol - POLST Patient has POLST: No POLST Status: DNR (He has advanced directive at home.) <Manuel Alas - Last Filed: 07/02/21 00:46> Meds/Allgy <Manuel Alas - Last Filed: 07/02/21 00:46> <Rosi Delgadillo - Last Filed: 07/02/21 01:03> - Home Medications Home Medications: Ambulatory Orders Medication Instructions Recorded Confirmed Clopidogrel Bisulfate [Clopidogrel] 75 mg PO DAILY 10/11/18 10/11/18 Metoprolol Tartrate 50 mg PO BID 10/11/18 10/11/18 Spironolactone 25 mg PO DAILY 10/11/18 10/11/18 lisinopriL [Lisinopril] 20 mg PO DAILY 10/11/18 10/11/18 Ciprofloxacin [Cipro] 250 mg PO BID #14 tablet 10/13/18 HYDROcod/ACETAM 5/325 [[place] 5/325] 1 tab PO Q4HR PRN #30 tablet 10/13/18 metroNIDAZOLE [Flagyl] 500 mg PO Q8H #21 tablet 10/13/18 cephALEXin [Keflex] 500 mg PO TID #21 capsule 05/09/20 - Allergies Allergies/Adverse Reactions: Allergies Allergy/AdvReac Type Severity Reaction Status Date / Time No Known Drug Allergies Allergy Verified 07/01/21 16:23 Review of Systems - Constitutional Constitutional: reports: Weakness (Over the course of past year), Weight gain (50lbs over the past 5 years) - Eyes Eyes: denies: Pain, Blurred vision, Spots in vision, Field loss, Vision loss, Dipolpia - Cardiovascular Cariovascular: reports: Decr. exercise tolerance (Less walking over the past yea r, especially since covid began.). denies: Chest pain, Edema, Lightheadedness, Syncope - Respiratory Respiratory: denies: Cough, Wheezing, SOB at rest - Gastrointestinal Gastrointestinal: reports: Nausea (When given IV contrast in the ED. Resolved now.). denies: Abdominal pain, Abdominal distention, Constipation, Change in bowel habits, Vomiting - Genitourinary Genitourinary: reports: Incontinence (Occassional "dribble") - Integumentary Integumentary: reports: Other (Bruises on arms) - Neurological Neurological: reports: Focal weakness (Right arm and palm at the time of event. Has resolved.), Numbness (Right sided at time of event. None currently.), Abnormal gait (at time of event had trouble walking. None now. Normally ambulates with cane.), Incoordination (Spilled coffee at time of event.), Slurred speech (When talking on phone to son at time of event had some slurring. Resolved now.). denies: Headache, Dizziness - Hematologic/Lymphatic Hematologic/Lymphatic: reports: Bruising <Manuel Alas - Last Filed: 07/02/21 00:46> <Manuel Alas - Last Filed: 07/02/21 00:46> Prior Level of Functionality: Lives at home. Ambulates with cane. Does not cook for himself or do his laundry. Has help come and assist with daily tasks twice a week. [place], but now not as often since covid began. (Manuel Alas) Exam - Physical Exam General Appearance: positive: No acute distress, Alert Eyes Bilateral: positive: PERRL, EOMI, Other (Right Eye Lid Droop.) Neck: positive: No JVD, Trachea midline. negative: Lymphadenopathy (R), Lymphadenopathy (L) Respiratory: positive: Chest non-tender, No respiratory distress, Breath sounds nml. negative: Wheezes, Rales, Rhonchi Cardiovascular: positive: Regular rate & rhythm (HR 106), No murmur, No gallop Peripheral Pulses: positive: 2+ (Pedal and radial pulses bilateral.) Abdomen: positive: Non-tender, Nml bowel sounds, No distention Skin: positive: Color nml Extremities: positive: Non-tender, Nml appearance, No pedal edema. negative: Shayy's sign/cords Neurologic/Psychiatric: positive: Oriented x3, CN's nml (2-12), Motor nml, Sensation nml, Mood/affect nml <Manuel Alas - Last Filed: 07/02/21 00:46> - Vital Signs Vital Signs: Vital Signs x48h Temp Pulse Pulse Resp BP BP Pulse Ox 07/01/21 23:41 36.8 C 67 18 134/76 H 94 07/01/21 21:17 147/74 H 07/01/21 21:14 36.6 C 102 H 18 147/74 H 95 07/01/21 19:00 36.8 C 106 H 16 166/88 H 98 07/01/21 18:27 100 22 134/83 H 96 Conclusion/Plan - Problem List (1) TIA (transient ischemic attack) Conclusion/Plan: This patient likely suffered a TIA. His risk factors of hypertension, age, sex, and history of a prior stroke support this. His symptoms of right sided numbness and weakness that resolved also support this. Furthermore, the Head CT/Neck were unremarkable for signs of stroke. The patients ABCD2 score is a 5 indicating the need for an MRI and ECHO for further evaluation. He is currently on clopidogrel and asprin for anticoagulation. This treatment should be continued. He will continue to be monitored throughout the night via telemetry. Pending the results of MRI and Echo the patient will likely be discharged tomorrow.The adequacy of his current anticoagulation regiment will need to be reevaluated with his primary care doctor. (2) Hypertension Conclusion/Plan: Pt currently has a BP of 166/88 and is taking lisonopril, spirinolactone, and metoprolol. To prevent rebound tachycardia patient was put on a 25mg dosage which is half is current dosage. Will allow permissive htn up to 180 systolic. No further management of his htn is needed at this time. He will need to follow up with his primary care doctor to re-evaluate his current regiment. Qualifiers: Hypertension type: unspecified Qualified Code(s): I10 - Essential (primary) hypertension (3) CKD (chronic kidney disease) stage 3, GFR 30-59 ml/min Conclusion/Plan: Condition appears stable at this time. Continue to avoid nephrotixic agents. Continue management with primary care doctor. Qualifiers: Chronic kidney disease stage 3 subtype: stage 3a (GFR 45-59) Qualified Code(s): N18.31 - Chronic kidney disease, stage 3a (4) Renal mass of unknown nature Conclusion/Plan: Renal mass was discovered on CT scan 2 years ago during his workup for diverticulitis. Discharge summary stated the need for follow up with PCP and an ultrasound. He was Seen in October, April, and May, but this was not addressed. Pt will have renal ultrasound tomorrow to assess the mass. - Lab Results Lab results reviewed: Yes Bones: 07/01/21 16:52 07/01/21 16:52 - Diagnostic Imaging Results Diagnostic Imaging Results: positive: Final report reviewed <Manuel Alas - Last Filed: 07/02/21 00:46> - Problem List (1) TIA (transient ischemic attack) Conclusion/Plan: Attestation that the patient was seen and examined by me with a separate encounter after being seen by PA student.. I reviewed the student's documentation including patient history, physical examination, laboratory, imaging, clinical assessment and treatment plan. I have discussed the management of the patient with the student, with the patient, There are no changes other than the addition of B12 deficiency by history. - Lab Results Ja Bones: 07/01/21 16:52 07/01/21 16:52 <Rosi Delgadillo - Last Filed: 07/02/21 01:03> - Lab Results Other Lab Results: WBC 5.1 x10^3/uL (4.8-10.8) 07/01/21 16:52 RBC 5.10 10^6/uL (4.70-6.10) 07/01/21 16:52 Hgb 15.4 g/dL (14.0-18.0) 07/01/21 16:52 Hct 47.2 % (42.0-52.0) 07/01/21 16:52 MCV 92.5 fL (80.0-94.0) 07/01/21 16:52 MCH 30.2 pg (27.0-31.0) 07/01/21 16:52 MCHC 32.6 g/dL (32.0-36.0) 07/01/21 16:52 RDW 13.7 % (12.0-15.0) 07/01/21 16:52 Plt Count 151 10^3/uL (130-450) 07/01/21 16:52 MPV 10.8 fL (7.4-11.4) 07/01/21 16:52 Neut # (Auto) 3.7 10^3/uL (1.5-6.6) 07/01/21 16:52 Lymph # (Auto) 0.7 10^3/uL (1.5-3.5) L 07/01/21 16:52 [place] # (Auto) 0.5 10^3/uL (0.0-1.0) 07/01/21 16:52 Eos # (Auto) 0.1 10^3/uL (0.0-0.7) 07/01/21 16:52 Baso # (Auto) 0.0 10^3/uL (0.0-0.1) 07/01/21 16:52 Absolute Nucleated RBC 0.00 x10^3/uL 07/01/21 16:52 Nucleated RBC % 0.0 /100WBC 07/01/21 16:52 Sodium 140 mmol/L (135-145) 07/01/21 16:52 Potassium 4.3 mmol/L (3.5-5.0) 07/01/21 16:52 Chloride 103 mmol/L (101-111) 07/01/21 16:52 Carbon Dioxide 26 mmol/L (21-32) 07/01/21 16:52 Anion Gap 11.0 (6-13) 07/01/21 16:52 BUN 22 mg/dL (6-20) H 07/01/21 16:52 Creatinine 1.3 mg/dL (0.6-1.2) H 07/01/21 16:52 Estimated GFR (MDRD) 52 (>89) L 07/01/21 16:52 Glucose 102 mg/dL (70-100) H 07/01/21 16:52 Calcium 9.3 mg/dL (8.5-10.3) 07/01/21 16:52 Nasal Adenovirus (PCR) NOT DETECTED 07/01/21 17:12 Nasal B. parapertussis DNA (PCR) NOT DETECTED 07/01/21 17:12 Nasal Coronavir 229E PCR NOT DETECTED 07/01/21 17:12 Nasal Coronavir HKU1 PCR NOT DETECTED 07/01/21 17:12 Nasal Coronavir NL63 PCR NOT DETECTED 07/01/21 17:12 Nasal Coronavir OC43 PCR NOT DETECTED 07/01/21 17:12 Nasal Enterovir/Rhinovir PCR NOT DETECTED 07/01/21 17:12 Nasal Influenza B PCR NOT DETECTED 07/01/21 17:12 Nasal Influenza A PCR NOT DETECTED 07/01/21 17:12 Nasal Parainfluen 1 PCR NOT DETECTED 07/01/21 17:12 Nasal Parainfluen 2 PCR NOT DETECTED 07/01/21 17:12 Nasal Parainfluen 3 PCR NOT DETECTED 07/01/21 17:12 Nasal Parainfluen 4 PCR NOT DETECTED 07/01/21 17:12 Nasal RSV (PCR) NOT DETECTED 07/01/21 17:12 Nasal B.pertussis DNA PCR NOT DETECTED 07/01/21 17:12 Nasal C.pneumoniae (PCR) NOT DETECTED 07/01/21 17:12 Janusz Human Metapneumo PCR NOT DETECTED 07/01/21 17:12 Nasal M.pneumoniae (PCR) NOT DETECTED 07/01/21 17:12 Nasal SARS-CoV-2 (PCR) NOT DETECTED 07/01/21 17:12 (Manuel Alas) - Diagnostic Imaging Results Diagnostic Imaging Results Comments: CT Head and Neck no abnormal findings indicative of stroke (Manuel Alas) - EKG Results EKG Findings: NSR, occasional PACs, otherwise unremarkable. (Manuel Alas) Core Measures - Anticipated LOS I expect patient to be DC'd or transferred within 96 hours.: Yes - DVT/VTE - Prophylaxis VTE/DVT Device ordered at admit?: Yes - Stroke - Rehab Assessment Rehab services assessment to be ordered?: No <Manuel Alas - Last Filed: 07/02/21 00:46>
[2021-07-01] MEDS: SODIUM CHLORIDE FLUSH 0.9% 10 ML SYRINGE IVP SCH (23:46)
[2021-07-02 05:16] LABS: BASOPHILS % (AUTO) 0.8 %; EOSINOPHILS # (AUTO) 0.1 10^3/uL (0.0-0.7); EOSINOPHILS % (AUTO) 3.3 %; HCT - HEMATOCRIT 38.6 % (42.0-52.0); HGB - HEMOGLOBIN 12.8 g/dL (14.0-18.0); LYMPHOCYTES # (AUTO) 0.8 10^3/uL (1.5-3.5); LYMPHOCYTES % (AUTO) 20.9 %; MEAN CORPUSCULAR HEMOGLOBIN 30.5 pg (27.0-31.0); MEAN CORPUSCULAR HGB CONC 33.2 g/dL (32.0-36.0); MEAN CORPUSCULAR VOLUME 92.1 fL (80.0-94.0); MONOCYTES # (AUTO) 0.5 10^3/uL (0.0-1.0); NEUTROPHILS # (AUTO) 2.5 10^3/uL (1.5-6.6); NEUTROPHILS % (AUTO) 62.7 %; PLT - PLATELET COUNT 133 10^3/uL (130-450); RED BLOOD COUNT 4.19 10^6/uL (4.70-6.10); RED CELL DISTRIBUTION WIDTH 13.8 % (12.0-15.0); WHITE BLOOD COUNT 3.9 x10^3/uL (4.8-10.8)
[2021-07-02 05:33] LABS: BUN - BLOOD UREA NITROGEN 18 mg/dL (6-20); CALCIUM 8.9 mg/dL (8.5-10.3); CARBON DIOXIDE - CO2 25 mmol/L (21-32); CHLORIDE 109 mmol/L (101-111); CHOLESTEROL 132 mg/dL; CREATININE 1.2 mg/dL (0.6-1.2); GFR - MDRD 58 (>89); GLUCOSE 96 mg/dL (70-100); HDL CHOLESTEROL 44 mg/dL; LDL CHOLESTEROL,CALCULATED 73 mg/dL; LDL/HDL RATIO 1.7 (<3.6); POTASSIUM 4.4 mmol/L (3.5-5.0); SODIUM 140 mmol/L (135-145); TRIGLYCERIDES 75 mg/dL; VLDL CHOLESTEROL 15 mg/dL
[2021-07-02] MEDS: SODIUM CHLORIDE 0.9% 1,000 ML IV SCH (05:47)
[2021-07-02] MEDS: METOPROLOL TARTRATE 25 MG TABLET PO SCH (08:09)
[2021-07-02] MEDS: SODIUM CHLORIDE FLUSH 0.9% 10 ML SYRINGE IVP SCH (08:10)
[2021-07-02] MEDS ORDERED: ASPIRIN EC 81 MG TABLET PO SCH (09:00)
[2021-07-02] MEDS ORDERED: CLOPIDOGREL 75 MG TABLET PO SCH (09:00)
[2021-07-02 09:04] LABS: ESTIMATED AVERAGE GLUCOSE 123 mg/dL (70-100); HEMOGLOBIN A1c% 5.9 % (4.27-6.07)
--- NOTE | 2021-07-02 10:54 | Discharge Plan ---
Discharge Plan Problem Reviewed?: Yes Disposition: Home, Self Care Condition: Good Prescriptions: Atorvastatin [Lipitor] 40 mg PO QPM #30 tablet Diet: Cardiac Activity Restrictions: Activity as Tolerated Instruction Topics: TIA, Transient Ischemic Attack Dc Health Concerns: You were admitted to the hospital because of concern for potential stroke or TIA. Fortunately, your symptoms have resolved. We ordered an MRI of your brain which showed no evidence of stroke. The MRI did show that you likely had an old stroke before but this would not explain the symptoms you had. We monitored your heart rhythm and there has been no irregular rhythms noted. We were unable to obtain an echocardiogram, which is an ultrasound of your heart, during this hospitalization because there is no tech available. This can be obtained on an outpatient basis. Plan of Treatment: Please continue to take your medications as previously prescribed. Please begin taking Lipitor 40 mg in the evening. This is a cholesterol medication which can help reduce your risk of stroke. Please follow-up with your primary care physician and they can order an echocardiogram for you. Care Goals: The goal is to decrease your risk of stroke. Assessment: The patient expressed understanding of the treatment plan. Additional Instructions or Follow Up instructions: Please follow-up with your primary care physician in 1 week. A neurology referral can be considered. Please follow-up with your primary care physician and they can order an echocardiogram for you. They can also discuss the results of the ultrasound of your kidney. No Smoking: If you smoke, Please STOP! Call for help. Follow-up with: Lucia Le ARNP [Primary Care Provider] -
--- NOTE | 2021-07-02 10:56 | DISCHARGE SUMMARY ---
Discharge Summary Admit Date: 07/01/21 Discharge Date: 07/02/21 Discharging Provider: Mason Rhoades Primary Care Provider: Lucia Le Code Status: Do Not Attempt Resuscitation Condition at Discharge: Good Discharge Disposition: 01 Home, Self Care - DIAGNOSES Admission Diagnoses: TIA Hypertension CKD stage III Renal mass of unknown nature Discharge Diagnoses with Status of Each Condition: TIA - resolved. Hypertension - stable. CKD stage III - stable Renal mass - stable. History of stroke - stable. - HPI History of Present Illness: H&P per Dr. Delgadillo: Zhanna is a pleasant and well appearing 86yo male who was admitted to inpatient service after a suspected TIA. His complaint started this morning as he felt a numbness and tingling in his R palm that progressed up his arm, right side of face, and right leg. He reports that this approximately lasted about 20 minutes. He also noticed that he had trouble walking and speaking on the phone to his son. He reports that his symptoms entirely resolved upon arrival to the ED via Ambulance. In the ED an EKG, CT Head/neck, CBC,and CMP were ordered and reviewed with no overt abnormalities indicative of a stroke.He is currently not experie ncing any symptoms and is resting comfortably in his bed. - HOSPITAL COURSE Hospital Course: He was admitted under observation for further work-up of the suspected TIA. He was continued on aspirin and Plavix. He was started on Lipitor 40 mg in the evening. An MRI was obtained which showed evidence of an old infarct but no evidence of acute ischemia. His symptoms had already resolved and he felt close to his baseline from a physical standpoint. We did order an ultrasound of his kidney given his history of a kidney mass but the report is not available prior to discharge. We were also unable to obtain an echocardiogram as there was no tech available today. He has not had any evidence of atrial fibrillation during this hospitalization. I have recommended that he follow-up with his primary care physician in 1 week to obtain echocardiogram and to follow up the ultrasound of the renal mass. - ALLERGIES Allergies/Adverse Reactions: Allergies Allergy/AdvReac Type Severity Reaction Status Date / Time No Known Drug Allergies Allergy Verified 07/01/21 16:23 - MEDICATIONS Home Medications: Ambulatory Orders Medication Instructions Recorded Confirmed Clopidogrel Bisulfate [Clopidogrel] 75 mg PO DAILY 10/11/18 07/02/21 Metoprolol Tartrate 50 mg PO BID 10/11/18 07/02/21 Spironolactone 25 mg PO DAILY 10/11/18 07/02/21 lisinopriL [Lisinopril] 30 mg PO DAILY 10/11/18 07/02/21 Aspirin [Aspirin EC] 81 mg PO DAILY 07/02/21 07/02/21 Atorvastatin [Lipitor] 40 mg PO QPM #30 tablet 07/02/21 - PHYSICAL EXAM AT DISCHARGE General Appearance: positive: No acute distress, Alert Eyes Bilateral: positive: Normal inspection, Conjunctivae nml ENT: positive: ENT inspection nml Neck: positive: Nml inspection Respiratory: positive: No respiratory distress. negative: Wheezes, Rales Cardiovascular: negative: Irregularly irregular, Tachycardia, Systolic murmur Abdomen: positive: Non-tender, No distention. negative: Tenderness Extremities: positive: Full ROM, No pedal edema Neurologic/Psychiatric: positive: Motor nml. negative: Disoriented to person, Weakness, Facial droop, Slurred/abnml speech Physical Exam Other/Comments: Vital Signs - 24 hr 07/01/21 07/01/21 07/01/21 18:27 19:00 21:14 Temperature 36.8 C 36.6 C Heart Rate 100 Heart Rate [ 106 H 102 H Radial] Respiratory 22 16 18 Rate Blood Pressure 134/83 H Blood Pressure 166/88 H 147/74 H [Right Brachial artery] O2 Saturation 96 98 95 07/01/21 07/01/21 07/02/21 21:17 23:41 05:15 Temperature 36.8 C 36.4 C L Heart Rate Heart Rate [ 67 70 Radial] Respiratory 18 18 Rate Blood Pressure 147/74 H Blood Pressure 134/76 H 137/74 H [Right Brachial artery] O2 Saturation 94 94 07/02/21 07/02/21 07/02/21 07:28 08:09 08:13 Temperature 36.4 C L Heart Rate Heart Rate [ 65 79 Radial] Respiratory 18 Rate Blood Pressure 137/74 H Blood Pressure 143/77 H [Right Brachial artery] O2 Saturation 94 07/02/21 13:40 Temperature 36.5 C Heart Rate Heart Rate [ 70 Radial] Respiratory 18 Rate Blood Pressure Blood Pressure 140/72 H [Right Brachial artery] O2 Saturation 96 Oxygen O2 Source Room air - LABS Result Diagrams: 07/02/21 05:00 07/02/21 05:00 - DIAGNOSTIC IMAGING Diagnostic Imaging Results: Final report reviewed Diagnostic Imaging Results Comments: Brain MRI showed no acute intracranial disease. No areas of acute infarction. Chronic, small, right chronic radiata/right caudate body lacunar infarct. Mod erate, diffuse volume loss. - FOLLOW UP Follow Up: I have recommended that he follow-up with his primary care physician in 1 week to obtain echocardiogram and to follow up the ultrasound of the renal mass. - TIME SPENT Time Spent in Discharge (Minutes): 32
--- NOTE | 2021-07-02 11:52 | MRI Report ---
PROCEDURE: Brain W/O INDICATIONS: TIA work up TECHNIQUE: Noncontrast axial T1 spin echo, axial T2 fast spin echo, sagittal and axial FLAIR, coronal T2 fast sp in echo, axial gradient echo, axial diffusion and ADC through the brain. COMPARISON: CT angiogram head 07/01/2021.. FINDINGS: Image quality: Excellent. CSF Spaces: Basal cisterns are patent. No extra-axial fluid collections. Ventricles are normal in size and shape. Brain: No intracranial masses or hemorrhage. Guerra/white matter interface is normal. There is modera te, diffuse cerebral volume loss. There are mild periventricular, subcortical and subinsular white ma tter chronic microvascular ischemic changes. Brainstem appears normal. Multiple foci of GRE weighted hypointensity noted in the cerebral hemispheres bilaterally, in the right bonilla and in the left cerebe llar hemisphere. Finding is nonspecific but typically related to hemosiderin the position secondary t o chronic hypertensive microbleed or amyloid angiopathy. Diffusion-weighted images demonstrate no acu te ischemic insult. Small chronic lacunar infarct involving the right la radiata and right caudat e body. Normal intravascular flow voids are present. Skull and face: Calvarium has normal marrow signal. Orbits appear normal. Sinuses: Sinuses and mastoids are clear. IMPRESSION: 1. No acute intracranial disease process. 2. No areas of acute infarction. 3. Chronic, small, right la radiata/right caudate body lacunar infarct. 4. Moderate, diffuse volume loss. 5. Mild periventricular, subcortical and subinsular white matter chronic microvascular ischemic ramirez es. 6. Punctate foci of GRE weighted artifact involving the cerebral hemispheres, right bonilla and left cer ebellar hemisphere. Finding is nonspecific but likely represents hemosiderin deposition related to either rem ote hypertensive microbleeds or amyloid angiopathy. Reviewed by: Praveena Paz MD, PhD on 07/02/2021 11:51 AM PDT Approved by: Praveena Paz MD, PhD on 07/02/2021 11:51 AM PDT Station ID: [id number]
[2021-07-02 13:41] VITALS: BP 140/72
--- NOTE | 2021-07-02 15:12 | Ultrasound Report ---
PROCEDURE: Retroperitoneal INDICATIONS: previous hx of renal mass on CT 2019 TECHNIQUE: Real-time scanning was performed of the retroperitoneal organs, with image documentation. COMPARISON: 04/30/2018. FINDINGS: Kidneys: Kidneys are normal in size. Right kidney measures 10.1 cm long; left kidney measures 11 cm long. Right renal cortical thickness is 1.6 cm; left renal cortical thickness is 1.5 cm. There is mild right-sided caliectasis. 1.2 x 1.1 x 1.2 cm simple cyst is seen in lower pole of right kidney. S mall left renal cysts are seen measures up to 3.1 x 1 x 1.3 cm in size in left peripelvic region. No gross solid masses, or nephrolithiasis. Bladder: Mild diffuse wall thickening is seen with trabeculation. Prevoid volume is 196 cc. Post void residual is 95 cc. Enlarged prostate gland is noted and measures 6.8 x 5.4 x 7.7 cm with mass effect on floor of urinary bladder. Bilateral ureteral jets are seen. IMPRESSION: 1. No gross solid-appearing renal lesion is noted on this study. Bilateral renal cysts as above. Mild right-sided caliectasis versus very mild hydronephrosis. No left-sided hydronephrosis. 2. Enlarged prostate gland with mass effect on floor of urinary bladder. Diffuse wall thickening with trabeculation suggestive of chronic outlet obstruction. Moderate amount of postvoid residual. No dis crete bladder wall mass. Reviewed by: Randy Landin MD on 07/02/2021 3:10 PM PDT Approved by: Randy Landin MD on 07/02/2021 3:10 PM PDT Station ID: [id number]
[2021-07-02] MEDS ORDERED: ATORVASTATIN 40 MG TABLET PO SCH (21:00)
== END 2021-07-02 14:22 | disposition home or self-care (01) ==
LOC: EDUNIT# → ED 16:14 → MS2 18:27
PROVIDERS: ADMIT Internal Medicine; ATTEND Internal Medicine
DX: G45.9 Transient cerebral ischemic attack, unspecified (principal); I13.0 Hypertensive heart and chronic kidney disease with heart failure and stage 1 through stage 4 chronic kidney disease, or unspecified chronic kidney disease; N18.31 Chronic kidney disease, stage 3a; I50.9 Heart failure, unspecified; N28.89 Other specified disorders of kidney and ureter; Z86.73 Personal history of transient ischemic attack (TIA), and cerebral infarction without residual deficits; Z79.02 Long term (current) use of antithrombotics/antiplatelets; Z79.82 Long term (current) use of aspirin; Z20.822 Contact with and (suspected) exposure to COVID-19; Z87.891 Personal history of nicotine dependence; Z66 Do not resuscitate
CPT/HCPCS: 36415; 70496; 70498; 70551; 76770; 80048; 80061; 83036; 85025; 87631; 93005; 96360; 96361; 99283; 99285; A9270; G0378; Q9967; 0202U; 83721